=== PATIENT | female | born 1940 | race Caucasian/White ===

== ENCOUNTER 2023-10-10 10:34 | Inpatient (IN) | payer MEDICARE, MEDICAID, SELFPAY ==
[2023-10-10] VITALS (67 sets, daily range): BP systolic 117–194; BP diastolic 41–86; PULSE 71–104; RESP 14–44; TEMP 36.2–36.7; O2SAT 93–100; BMI 34.7; BMI 33.3
--- NOTE | 2023-10-10 | DI.CT.S_ITS ---
PROCEDURE: CT ANKLE LEFT WITHOUT INDICATIONS: FALL - left ankle TECHNIQUE: Noncontrast 1-1.5 mm axial sections acquired from above the tibiotalar joint to the bottom of the calcaneus, with coronal and sagittal reformats. COMPARISON: [facility], CR, XR ANKLE LT MIN 3V, 10/10/2023, 10:52. FINDINGS: Image quality: Excellent. Bones: Trimalleolar fracture with associated posterior dislocation of the talus relative to the distal tibia period the posterior malleolus, medial malleolus, and distal fibular fractures are displaced. There is extensive comminution with numerous tiny bone fragments present. The injury involves the syndesmosis, as the distal fibular fracture begins at the distal shaft. Soft tissues: Ankle joint effusion. IMPRESSION: Extensively comminuted trimalleolar fractures, all displaced, with posterior talar dislocation and involvement of the syndesmosis. Dictated by: Ricco Solomon M.D. on 10/10/2023 at 11:26 Approved by: Ricco Solomon M.D. on 10/10/2023 at 11:29
--- NOTE | 2023-10-10 10:40 | DI.CT.S_ITS ---
PROCEDURE: CT CERVICAL SPINE WO CON INDICATIONS: fall,pt takes eliquis TECHNIQUE: Noncontrast 3 mm thick sections acquired from the skull base to the T4 level. Sagittal and coronal reformats were then constructed. For radiation dose reduction, the following was used: automated exposure control, adjustment of mA and/or kV according to patient size. COMPARISON: None. FINDINGS: Image quality: Suboptimal due to motion artifact. Bones: No fractures or dislocations. Visualized superior ribs are intact. Grade 1 anterolisthesis C3 on C4, likely due to facet arthrosis. Reversal of the normal cervical lordosis. Moderate to severe disc height loss at C6-7, C5-6 and C4-5. Soft tissues: Prevertebral soft tissues are normal in thickness. No paravertebral hematomas. No apical pneumothoraces. IMPRESSION: Severely suboptimal evaluation due to motion artifact. No significantly displaced fracture. Dictated by: Vlad Eckert M.D. on 10/10/2023 at 11:20 Approved by: Vlad Eckert M.D. on 10/10/2023 at 11:22
--- NOTE | 2023-10-10 10:40 | DI.CT.S_ITS ---
PROCEDURE: CT HEAD/BRAIN WO CON INDICATIONS: fall,pt takes eliquis TECHNIQUE: Noncontrast 4.5 mm thick angled axial sections acquired from the foramen magnum to the vertex, with coronal and sagittal reformats. For radiation dose reduction, the following was used: automated exposure control, adjustment of mA and/or kV according to patient size. COMPARISON: None. FINDINGS: Image quality: Diagnostic. CSF spaces: Basal cisterns are patent. No extra-axial fluid collections. The ventricles are symmetric in size and shape. Brain: No intracranial bleeds or masses. There is cerebral volume loss for age, with resultant ventricular and sulcal prominence. There are periventricular and deep white matter chronic small vessel ischemic changes. There is intracranial internal carotid artery atherosclerosis. Skull and face: Calvarium and visualized facial bones appear intact, without suspicious lesions. Hyperostosis frontalis interna. Sinuses: Visualized sinuses and mastoids are clear. IMPRESSION: No acute intracranial pathology. Dictated by: Vlad Eckert M.D. on 10/10/2023 at 11:19 Approved by: Vlad Eckert M.D. on 10/10/2023 at 11:20
--- NOTE | 2023-10-10 10:40 | DI.RAD.S_ITS ---
PROCEDURE: XR ANKLE LT MIN 3V INDICATIONS: fall,pt takes eliquis TECHNIQUE: 3 views of the ankle were acquired. COMPARISON: [facility], CT, CT ANKLE LEFT WITHOUT, 10/10/2023, 11:01. FINDINGS: Bones: Trimalleolus fracture, with tibiotalar dislocation. Soft tissues: Large tibiotalar joint effusion. Achilles tendon appears normal. Swelling about the ankle joint. IMPRESSION: Trimalleolar fracture, with dislocation. Dictated by: Vlad Eckert M.D. on 10/10/2023 at 11:23 Approved by: Vlad Eckert M.D. on 10/10/2023 at 11:24
[2023-10-10] MEDS: MORPHINE 2 MG/ML INJ IV (11:59)
[2023-10-10 12:02] LABS: Add Manual Diff / Slide Review NO; Basophils Absolute Auto 100 /uL (0-100); Basophils Percent Auto 0.5 % (0-2); Eosinophils Absolute Auto 0 /uL (0-450); Eosinophils Percent Auto 0.3 % (2-4); Hematocrit 39.1 % (36-46); Lymphocytes Absolute Auto 1200 /uL (1100-4500); Lymphocytes Percent Auto 10.8 % (25-40); Mean Corpuscular HGB Conc 33.2 % (30-36); Mean Corpuscular Hemoglobin 30.7 PG (26-34); Mean Corpuscular Volume 92.6 fL (80-100); Monocytes Absolute Auto 600 /uL (0-900); Monocytes Percent Auto 5.6 % (3-14); Neutrophils Absolute Auto 9400 /uL (1500-7000); Neutrophils Percent Auto 82.8 % (50-75); Platelet Count 313 X10^3/uL (150-400); Red Blood Cell Count 4.22 X10^6/uL (4.0-5.2); Red Cell Distribution Width 13.9 % (11.6-14.8); White Blood Cell Count 11.3 X10^3/uL (4.5-11.0)
[2023-10-10 12:07] LABS: Alanine Aminotransferase 27 IU/L (<35); Albumin 4.2 g/dL (3.5-5.0); Albumin Globulin Ratio 1.4 (1.0-2.8); Alkaline Phosphatase 72 U/L (38-126); Aspartate Aminotransferase 35 IU/L (14-36); BUN Creatinine Ratio 25.7 (6-22); Bilirubin Total 0.7 mg/dL (0.2-1.3); Blood Urea Nitrogen 18 mg/dL (7-17); Calcium 9.6 mg/dL (8.4-10.2); Carbon Dioxide 24 mmol/L (22-32); Chloride 106 mmol/L (98-107); Estimated Glomerular Filt Rate > 60 mL/min (>60); Glucose 107 mg/dL (80-110); HEMOLYSIS 32 (0-50); Potassium 4.9 mmol/L (3.4-5.1); Sodium 138 mmol/L (137-145); Total Protein 7.2 g/dL (6.3-8.2)
--- NOTE | 2023-10-10 12:46 | ED.FALL ---
HPI - Fall General Chief Complaint: Fall Stated Complaint: l ankle injury Time Seen by Provider: 10/10/23 11:00 Source: patient Mode of arrival: Wheelchair History of Present Illness HPI Narrative: Patient is an 83-year-old female history of paroxysmal atrial fibrillation on Eliquis, congestive heart failure, asthma presenting today with left ankle injury. She reports that she was walking on a curb when her left knee gave out and fell down. She did not head or lose consciousness. She is severe left ankle pain. She has some skin tears on her left elbow. Her friend was able to help her into the car and drove her in POV. She has no chest pain palpitations shortness of breath or other symptoms Related Data Allergies Allergy/AdvReac Type Severity Reaction Status Date / Time Penicillins Allergy Verified 10/10/23 10:36 Patient History Medical History Stage 3b chronic kidney disease (CKD) History of cardioversion Persistent atrial fibrillation Systolic heart failure CAD (coronary artery disease) Emphysema of lung Surgical History No pertinent past surgical history Social History household members: none Smoking Status: Former smoker substance use type: does not use Smoking Status: Unknown if ever smoked alcohol intake frequency: holidays/special occasions only Substance Use Type: does not use Exam Initial Vital Signs Initial Vital Signs: Vital Signs Temperature 97.4 F L 10/10/23 10:36 Pulse Rate 104 H 10/10/23 10:36 Respiratory Rate 16 10/10/23 10:36 Blood Pressure 191/84 H 10/10/23 10:36 Pulse Oximetry 96 10/10/23 10:36 Oxygen Delivery Method Room Air 10/10/23 10:36 GENERAL: Alert very pleasant 83-year-old female HEENT: Head atraumatic,EOMI, pupils reactive, face symmetric, moist mucous membranes NECK: No vertebral tenderness no step-off CARDIOVASCULAR: Regular rate and rhythm without murmurs, rubs or gallops. RESPIRATORY: Breath sounds equal bilaterally, no wheezes rales or rhonchi. EXTREMITIES: Normal range of motion, no clubbing or edema. Neurovascularly intact. No pelvis pain no hip pain Left lower extremity obvious ankle dislocation distal pedal pulse is felt knee is stable NEUROLOGICAL: Alert and oriented x4.Normal gait and speech. SKIN: Significant skin tear left elbow and left knee Procedures Orthopedic Fracture Reduction Fracture #1: Time Out Performed: Yes Side: left Fracture Reduction Location: tibia and fibula Analgesia: procedural sedation Technique: direct manipulation and traction/counter-traction Post Reduction X-rays Demonstrate: acceptable reduction Post-reduction neuro exam: intact Post-reduction vascular exam: intact Splint Applied: Yes Patient Tolerated Procedure: Well and No complications Orthopedic Splinting/Casting Injury #1: Lower Extremity Injury Location: ankle Lower Extremity Immobilizer: posterior splint and stirrup splint Post splinting neuro exam: intact Post splinting vascular exam: intact Placed by: Provider Procedural Sedation Consent signed: Yes Time out performed: Yes Indication: fracture/dislocation reduction ASA Class: II Mallampati Airway Classification: Class II IV Propofol dose (mg): 50 Intraservice time/total sedation time (min): 15 ED Sedation Level: Moderate (Concious) Patient Tolerated Procedure: Well and No complications Complications: none Course Orders Ordered: ED Orders 10/10/23 10:40 CT cervical spine wo con Stat CT head/brain wo con Stat XR ankle LT min 3V Stat 10/10/23 11:57 CBC Auto Diff [Complete Blood Count AUTO DIFF] Stat CMP [Comprehensive Metabolic Panel] Stat 10/10/23 12:05 EKG-12 Lead Stat 10/10/23 13:10 XR ankle LT 2V Stat Acetaminophen (Acetaminophen 325 Mg Tablet) 650 mg PO Q6H PRN PRN Reason: Fever/Mild Pain (1-3) Albuterol (Albuterol 2.5 Mg/3 Ml Neb (Adult)) 2.5 mg INH [id number] PRN PRN Reason: Shortness Of Breath Albuterol (Albuterol 2.5 Mg/3 Ml Neb (Adult)) 2.5 mg INH [id number] ANNELIESE Albuterol/Ipratropium (Albuterol/Ipratropium 3 Ml Ampul) 3 ml INH [id number] ANNELIESE Atorvastatin Calcium (Atorvastatin 20 Mg Tablet) 20 mg PO BEDTIME ANNELIESE Heparin Sodium (Porcine) (Heparin 5,000 Unit/Ml Vial) 5,000 unit SUBCUT BID ANNELIESE Hydromorphone HCl (Hydromorphone 0.5 Mg Inj) 0.5 mg IV Q2H PRN PRN Reason: Pain, Severe (7-10) Metoprolol Succinate (Metoprolol Er 50 Mg Tablet) 100 mg PO DAILY [facility] Montelukast Sodium (Montelukast 10 Mg Tablet) 10 mg PO DAILY ANNELIESE Naloxone HCl (Naloxone 0.4 Mg/Ml Vial) 0.2 mg IV Q2MIN PRN PRN Reason: Opiate Reversal Nystatin (Nystatin Powder 15gm) 1 applic TOP BID PRN PRN Reason: Rash Ondansetron HCl (Ondansetron 4 Mg/2 Ml Inj) 4 mg IV Q8HR PRN PRN Reason: Nausea And Vomiting Oxycodone HCl (Oxycodone Ir 5 Mg Tablet) 5 mg PO Q3H PRN PRN Reason: Pain, Moderate (4-6) Last Admin: 10/10/23 16:20 Dose: 5 mg Documented By: ONIEL Prednisone (Prednisone 5 Mg Tablet) 5 mg PO DAILY ANNELIESE Discontinued Medications Morphine Sulfate (Morphine 2 Mg/Ml Inj) 2 mg IV NOW ONE Stop: 10/10/23 11:44 Last Admin: 10/10/23 11:59 Dose: 2 mg Documented By: Propofol (Propofol 200 Mg/20 Ml Vial) 85 mg 1 mg/kg (85 mg) IV NOW ONE Stop: 10/10/23 12:47 Last Admin: 10/10/23 13:02 Dose: 50 mg Documented By: Vital Signs Vital signs: Vital Signs - 8 hr 10/10/23 11:30 10/10/23 11:35 10/10/23 11:39 Pulse Rate 82 85 Respiratory Rate 32 H 41 H Blood Pressure 132/63 Pulse Oximetry 95 96 Oxygen Delivery Method Oxygen Flow Rate 10/10/23 11:39 10/10/23 11:40 10/10/23 11:45 Pulse Rate 83 87 84 Respiratory Rate 29 H 44 H 31 H Blood Pressure Pulse Oximetry 96 96 97 Oxygen Delivery Method Oxygen Flow Rate 10/10/23 11:50 10/10/23 11:55 10/10/23 12:00 Pulse Rate 81 78 78 Respiratory Rate 20 24 20 Blood Pressure Pulse Oximetry 97 96 96 Oxygen Delivery Method Oxygen Flow Rate 10/10/23 12:05 10/10/23 12:08 10/10/23 12:08 Pulse Rate 81 80 Respiratory Rate 21 30 H Blood Pressure 150/66 H Pulse Oximetry 96 98 Oxygen Delivery Method Oxygen Flow Rate 10/10/23 12:10 10/10/23 12:15 10/10/23 12:20 Pulse Rate 82 80 85 Respiratory Rate 32 H 34 H 35 H Blood Pressure Pulse Oximetry 96 97 98 Oxygen Delivery Method Oxygen Flow Rate 10/10/23 12:25 10/10/23 12:30 10/10/23 12:30 Pulse Rate 79 80 Respiratory Rate 28 H 25 H Blood Pressure 155/67 H Pulse Oximetry 98 98 Oxygen Delivery Method Oxygen Flow Rate 10/10/23 12:35 10/10/23 12:40 10/10/23 12:45 Pulse Rate 74 79 75 Respiratory Rate 22 20 23 Blood Pressure Pulse Oximetry 100 97 97 Oxygen Delivery Method Oxygen Flow Rate 10/10/23 12:50 10/10/23 12:50 10/10/23 12:55 Pulse Rate 75 78 78 Respiratory Rate 21 22 24 Blood Pressure Pulse Oximetry 100 100 Oxygen Delivery Method Oxygen Flow Rate 10/10/23 13:00 10/10/23 13:00 10/10/23 13:01 Pulse Rate 80 Respiratory Rate 30 H Blood Pressure 176/75 H 176/78 H Pulse Oximetry 100 Oxygen Delivery Method Oxygen Flow Rate 10/10/23 13:01 10/10/23 13:05 10/10/23 13:05 Pulse Rate 78 78 Respiratory Rate 27 H 21 Blood Pressure 173/74 H Pulse Oximetry 100 99 Oxygen Delivery Method Oxygen Flow Rate 10/10/23 13:10 10/10/23 13:10 10/10/23 13:15 Pulse Rate 76 Respiratory Rate 20 Blood Pressure 158/72 H 155/69 H Pulse Oximetry 99 Oxygen Delivery Method Oxygen Flow Rate 10/10/23 13:15 10/10/23 13:20 10/10/23 13:20 Pulse Rate 74 74 Respiratory Rate 21 16 Blood Pressure 165/74 H Pulse Oximetry 99 99 Oxygen Delivery Method Oxygen Flow Rate 10/10/23 13:22 10/10/23 13:24 10/10/23 13:25 Pulse Rate 73 74 Respiratory Rate 28 H 17 Blood Pressure 165/74 H 158/72 H Pulse Oximetry 99 100 Oxygen Delivery Method Oxygen Flow Rate 10/10/23 13:25 10/10/23 13:27 10/10/23 13:27 Pulse Rate 74 72 78 Respiratory Rate 18 17 17 Blood Pressure 158/72 H 158/72 H Pulse Oximetry 98 97 98 Oxygen Delivery Method Room Air Oxygen Flow Rate 0 10/10/23 13:30 10/10/23 13:30 10/10/23 13:32 Pulse Rate 71 71 Respiratory Rate 17 20 Blood Pressure 157/70 H 157/70 H Pulse Oximetry 98 98 Oxygen Delivery Method Oxygen Flow Rate 10/10/23 13:32 10/10/23 13:35 10/10/23 13:35 Pulse Rate 72 72 Respiratory Rate 20 18 Blood Pressure 157/70 H 161/71 H Pulse Oximetry 98 97 Oxygen Delivery Method Room Air Oxygen Flow Rate 10/10/23 13:40 10/10/23 13:40 10/10/23 13:45 Pulse Rate 71 71 Respiratory Rate 17 14 Blood Pressure 146/65 H Pulse Oximetry 96 100 Oxygen Delivery Method Oxygen Flow Rate 10/10/23 13:45 10/10/23 13:50 10/10/23 13:50 Pulse Rate 72 Respiratory Rate 17 Blood Pressure 147/67 H 144/66 H Pulse Oximetry 97 Oxygen Delivery Method Oxygen Flow Rate 10/10/23 13:55 10/10/23 13:55 10/10/23 14:00 Pulse Rate 71 Respiratory Rate 15 Blood Pressure 143/66 H 157/72 H Pulse Oximetry 98 Oxygen Delivery Method Oxygen Flow Rate 10/10/23 14:00 10/10/23 14:05 10/10/23 14:05 Pulse Rate 75 71 Respiratory Rate 18 16 Blood Pressure 144/66 H Pulse Oximetry 96 96 Oxygen Delivery Method Oxygen Flow Rate 10/10/23 14:10 10/10/23 14:10 10/10/23 14:15 Pulse Rate 71 72 Respiratory Rate 14 15 Blood Pressure 143/65 H Pulse Oximetry 97 97 Oxygen Delivery Method Oxygen Flow Rate 10/10/23 14:15 10/10/23 14:20 10/10/23 14:20 Pulse Rate 73 Respiratory Rate 14 Blood Pressure 140/65 173/75 H Pulse Oximetry 97 Oxygen Delivery Method Oxygen Flow Rate 10/10/23 14:25 10/10/23 14:25 10/10/23 14:30 Pulse Rate 81 Respiratory Rate 27 H Blood Pressure 194/86 H 180/79 H Pulse Oximetry 97 Oxygen Delivery Method Oxygen Flow Rate 10/10/23 14:30 10/10/23 14:35 10/10/23 14:35 Pulse Rate 80 75 Respiratory Rate 22 20 Blood Pressure 187/77 H Pulse Oximetry 96 98 Oxygen Delivery Method Oxygen Flow Rate 10/10/23 14:40 10/10/23 14:40 10/10/23 14:45 Pulse Rate 73 Respiratory Rate 17 Blood Pressure 168/74 H 159/68 H Pulse Oximetry 98 Oxygen Delivery Method Oxygen Flow Rate 10/10/23 14:45 Pulse Rate 75 Respiratory Rate 16 Blood Pressure Pulse Oximetry 96 Oxygen Delivery Method Oxygen Flow Rate MDM - Fall Lab Data 10/10/23 11:57 10/10/23 11:57 Labs: Lab Results 10/10/23 Range/Units 11:57 WBC 11.3 H (4.5-11.0) X10^3/uL RBC 4.22 (4.0-5.2) X10^6/uL Hgb 13.0 (12.0-16.0) g/dL Hct 39.1 (36-46) % MCV 92.6 (80-100) fL MCH 30.7 (26-34) PG MCHC 33.2 (30-36) % RDW 13.9 (11.6-14.8) % Plt Count 313 (150-400) X10^3/uL Neut % (Auto) 82.8 H (50-75) % Lymph % (Auto) 10.8 L (25-40) % [place] % (Auto) 5.6 (3-14) % Eos % (Auto) 0.3 L (2-4) % Baso % (Auto) 0.5 (0-2) % Neut # (Auto) 9400 H (5893-3401) /uL Lymph # (Auto) 1200 (6285-0387) /uL [place] # (Auto) 600 (0-900) /uL Eos # (Auto) 0 (0-450) /uL Baso # (Auto) 100 (0-100) /uL Sodium 138 (137-145) mmol/L Potassium 4.9 (3.4-5.1) mmol/L Chloride 106 (98-107) mmol/L Carbon Dioxide 24 (22-32) mmol/L BUN 18 H (7-17) mg/dL Creatinine 0.70 (0.52-1.04) mg/dL Estimated GFR > 60 (>60) mL/min BUN/Creatinine Ratio 25.7 H (6-22) Glucose 107 (80-110) mg/dL Calcium 9.6 (8.4-10.2) mg/dL Total Bilirubin 0.7 (0.2-1.3) mg/dL AST 35 (14-36) IU/L ALT 27 (<35) IU/L Alkaline Phosphatase 72 (38-126) U/L Total Protein 7.2 (6.3-8.2) g/dL Albumin 4.2 (3.5-5.0) g/dL Globulin 3.0 (1.7-4.1) g/dL Albumin/Globulin Ratio 1.4 (1.0-2.8) Point of Care Testing Test Results Not applicable ECG Data Interpretation: Sinus rhythm left bundle-branch block noted no acute changes no priors to compare MDM Narrative Medical decision making narrative: Patient 83-year-old female history of atrial fibrillation CHF 1 Eliquis presenting today with ground level fall and left ankle deformity. X-ray confirms ankle fracture dislocation. She tolerated procedure sedation well easily reduced. Patient lives on [address] [facility] alone she has no family children or support accepts for her neighbor. She reports that she is a DNR. Imaging reviewed: X-ray shows fracture dislocation, with improvement post reduction, CT ankle shows extensively comminuted trimalleolar fractures all displaced with posterior talar dislocation, CT cervical spine no fracture head CT no intracranial pathology [facility] updated patient's symptoms understands that it might be a social issue he agrees to do surgery in [address] Teague updated on patient's symptoms test results and accepts Discharge Plan Departure Patient Disposition: Admitted As Inpatient Clinical Impression: Closed fracture dislocation of right ankle, Closed right trimalleolar fracture Admit Date/Time: 10/10/23 14:49 Admit Provider: Duran Teague
[2023-10-10] MEDS: propofoL 200 MG/20 ML VIAL 85 MG IV (13:02)
--- NOTE | 2023-10-10 13:10 | DI.RAD.S_ITS ---
PROCEDURE: XR ANKLE LT 2V INDICATIONS: post reduction TECHNIQUE: 3 views of the ankle were acquired. COMPARISON: [facility], CR, XR ANKLE LT MIN 3V, 10/10/2023, 10:52. FINDINGS: Bones: Casted views is somewhat obscure bony detail. Significant interval improvement in alignment, with trimalleolar fractures and Re approximation of the ankle mortise. Soft tissues: No tibiotalar joint effusion. Achilles tendon appears normal. IMPRESSION: Significant improvement in alignment, trimalleolar fractures. There is no longer a tibiotalar dislocation. Dictated by: Ricco Solomon M.D. on 10/10/2023 at 13:47 Approved by: Ricco Solomon M.D. on 10/10/2023 at 13:48
--- NOTE | 2023-10-10 14:12 | RT ---
At bedside for PRS,bag mask unit with suction at bedside functional and on. Pt placed on etco2 and 2 lpm nc. Sao2 99%, pt moo well with no distress noted. Released by LOUIS Harrell, all rales up and pt alert on room air.
--- NOTE | 2023-10-10 14:32 | PC.NURSE ---
purewick placed; pt education given
--- NOTE | 2023-10-10 15:05 | PC.NURSE ---
Pt's silver bracelet placed into a lab bag that was labeled with a pt sticker. Labeled lab bag was placed into the pt's pt belonging bag.
[2023-10-10] MEDS: OXYCODONE IR 5 MG TABLET PO ×2 (16:20→20:04)
--- NOTE | 2023-10-10 16:47 | P.HP_ITS ---
History of Present Illness History of Present Illness Date Patient Seen: 10/10/23 Time Patient Seen: 16:53 Chief complaint: l ankle injury Narrative: This is an 83 year old female with PMH of emphysema, persistent afib, systolic HF (most recent EF around 55% on TTE 2022), CKD stage III who presented to the emergency room with L ankle pain after a fall. She fell getting up onto a curb, where she had severe knee pain which made her legs give out and she fell backward. She did not hit her head or lose consciousness. She takes eqliuis for her persistent afib. Prior to this, since her admission for pneumonia last year she has continued to feel weak, short of breath, and over the last couple of months this has maybe been a bit worse. Her legs are a bit more swollen, but she primarily has increased fatigue and decreased activity tolerance. Her pain is currently okay, only really bothers her without movement. She has had worsening right groin pain, which is worse with lifting, that has also been limiting her mobility recently due to recurring pain. She has rested and did exercises her PCP recommended at home but they have not been helping. It really started she thinks after pushing a heavy plant at her home. Home medications: from patient's phone: advair 230-21, albuterol and duo-neb nebulizers eliquis 2.5 mg BID prednisone 5 mg daily lasix 20 mg prn (has not taken >1 year) lipitor 20 mg losartan 25 mg daily metoprolol succ 100 mg daily montelukast 10 mg daily [facility] Medical History Stage 3b chronic kidney disease (CKD) History of cardioversion Persistent atrial fibrillation Systolic heart failure CAD (coronary artery disease) Emphysema of lung Surgical History No pertinent past surgical history Social History household members: none Smoking Status: Former smoker substance use type: does not use Meds Home Medications and Allergies Allergies Allergy/AdvReac Type Severity Reaction Status Date / Time Penicillins Allergy Verified 10/10/23 10:36 Review of Systems Review of Systems Narrative: All other systems reviewed with the patient and are negative unless otherwise stated. Exam Vital Signs (past 8 hours): - 10/10/23 10:36 10/10/23 11:17 10/10/23 11:20 Temperature 97.4 F L Pulse Rate 104 H 90 81 Pulse Rate [Left Dorsalis Pedis] Respiratory Rate 16 37 H 26 H Blood Pressure 191/84 H Pulse Oximetry 96 96 Oxygen Delivery Method Room Air Oxygen Flow Rate 10/10/23 11:25 10/10/23 11:30 10/10/23 11:35 Temperature Pulse Rate 90 82 85 Pulse Rate [Left Dorsalis Pedis] Respiratory Rate 34 H 32 H 41 H Blood Pressure Pulse Oximetry 95 95 96 Oxygen Delivery Method Oxygen Flow Rate 10/10/23 11:39 10/10/23 11:39 10/10/23 11:40 Temperature Pulse Rate 83 87 Pulse Rate [Left Dorsalis Pedis] Respiratory Rate 29 H 44 H Blood Pressure 132/63 Pulse Oximetry 96 96 Oxygen Delivery Method Oxygen Flow Rate 10/10/23 11:45 10/10/23 11:50 10/10/23 11:55 Temperature Pulse Rate 84 81 78 Pulse Rate [Left Dorsalis Pedis] Respiratory Rate 31 H 20 24 Blood Pressure Pulse Oximetry 97 97 96 Oxygen Delivery Method Oxygen Flow Rate 10/10/23 12:00 10/10/23 12:05 10/10/23 12:08 Temperature Pulse Rate 78 81 Pulse Rate [Left Dorsalis Pedis] Respiratory Rate 20 21 Blood Pressure 150/66 H Pulse Oximetry 96 96 Oxygen Delivery Method Oxygen Flow Rate 10/10/23 12:08 10/10/23 12:10 10/10/23 12:15 Temperature Pulse Rate 80 82 80 Pulse Rate [Left Dorsalis Pedis] Respiratory Rate 30 H 32 H 34 H Blood Pressure Pulse Oximetry 98 96 97 Oxygen Delivery Method Oxygen Flow Rate 10/10/23 12:20 10/10/23 12:25 10/10/23 12:30 Temperature Pulse Rate 85 79 Pulse Rate [Left Dorsalis Pedis] Respiratory Rate 35 H 28 H Blood Pressure 155/67 H Pulse Oximetry 98 98 Oxygen Delivery Method Oxygen Flow Rate 10/10/23 12:30 10/10/23 12:35 10/10/23 12:40 Temperature Pulse Rate 80 74 79 Pulse Rate [Left Dorsalis Pedis] Respiratory Rate 25 H 22 20 Blood Pressure Pulse Oximetry 98 100 97 Oxygen Delivery Method Oxygen Flow Rate 10/10/23 12:45 10/10/23 12:50 10/10/23 12:50 Temperature Pulse Rate 75 75 78 Pulse Rate [Left Dorsalis Pedis] Respiratory Rate 23 21 22 Blood Pressure Pulse Oximetry 97 100 Oxygen Delivery Method Oxygen Flow Rate 10/10/23 12:55 10/10/23 13:00 10/10/23 13:00 Temperature Pulse Rate 78 80 Pulse Rate [Left Dorsalis Pedis] Respiratory Rate 24 30 H Blood Pressure 176/75 H Pulse Oximetry 100 100 Oxygen Delivery Method Oxygen Flow Rate 10/10/23 13:01 10/10/23 13:01 10/10/23 13:05 Temperature Pulse Rate 78 Pulse Rate [Left Dorsalis Pedis] Respiratory Rate 27 H Blood Pressure 176/78 H 173/74 H Pulse Oximetry 100 Oxygen Delivery Method Oxygen Flow Rate 10/10/23 13:05 10/10/23 13:10 10/10/23 13:10 Temperature Pulse Rate 78 76 Pulse Rate [Left Dorsalis Pedis] Respiratory Rate 21 20 Blood Pressure 158/72 H Pulse Oximetry 99 99 Oxygen Delivery Method Oxygen Flow Rate 10/10/23 13:15 10/10/23 13:15 10/10/23 13:20 Temperature Pulse Rate 74 Pulse Rate [Left Dorsalis Pedis] Respiratory Rate 21 Blood Pressure 155/69 H 165/74 H Pulse Oximetry 99 Oxygen Delivery Method Oxygen Flow Rate 10/10/23 13:20 10/10/23 13:22 10/10/23 13:24 Temperature Pulse Rate 74 73 74 Pulse Rate [Left Dorsalis Pedis] Respiratory Rate 16 28 H 17 Blood Pressure 165/74 H Pulse Oximetry 99 99 100 Oxygen Delivery Method Oxygen Flow Rate 10/10/23 13:25 10/10/23 13:25 10/10/23 13:27 Temperature Pulse Rate 74 72 Pulse Rate [Left Dorsalis Pedis] Respiratory Rate 18 17 Blood Pressure 158/72 H 158/72 H Pulse Oximetry 98 97 Oxygen Delivery Method Oxygen Flow Rate 0 10/10/23 13:27 10/10/23 13:30 10/10/23 13:30 Temperature Pulse Rate 78 71 Pulse Rate [Left Dorsalis Pedis] Respiratory Rate 17 17 Blood Pressure 158/72 H 157/70 H Pulse Oximetry 98 98 Oxygen Delivery Method Room Air Oxygen Flow Rate 10/10/23 13:32 10/10/23 13:32 10/10/23 13:35 Temperature Pulse Rate 71 72 Pulse Rate [Left Dorsalis Pedis] Respiratory Rate 20 20 Blood Pressure 157/70 H 157/70 H 161/71 H Pulse Oximetry 98 98 Oxygen Delivery Method Room Air Oxygen Flow Rate 10/10/23 13:35 10/10/23 13:40 10/10/23 13:40 Temperature Pulse Rate 72 71 Pulse Rate [Left Dorsalis Pedis] Respiratory Rate 18 17 Blood Pressure 146/65 H Pulse Oximetry 97 96 Oxygen Delivery Method Oxygen Flow Rate 10/10/23 13:45 10/10/23 13:45 10/10/23 13:50 Temperature Pulse Rate 71 72 Pulse Rate [Left Dorsalis Pedis] Respiratory Rate 14 17 Blood Pressure 147/67 H Pulse Oximetry 100 97 Oxygen Delivery Method Oxygen Flow Rate 10/10/23 13:50 10/10/23 13:55 10/10/23 13:55 Temperature Pulse Rate 71 Pulse Rate [Left Dorsalis Pedis] Respiratory Rate 15 Blood Pressure 144/66 H 143/66 H Pulse Oximetry 98 Oxygen Delivery Method Oxygen Flow Rate 10/10/23 14:00 10/10/23 14:00 10/10/23 14:05 Temperature Pulse Rate 75 Pulse Rate [Left Dorsalis Pedis] Respiratory Rate 18 Blood Pressure 157/72 H 144/66 H Pulse Oximetry 96 Oxygen Delivery Method Oxygen Flow Rate 10/10/23 14:05 10/10/23 14:10 10/10/23 14:10 Temperature Pulse Rate 71 71 Pulse Rate [Left Dorsalis Pedis] Respiratory Rate 16 14 Blood Pressure 143/65 H Pulse Oximetry 96 97 Oxygen Delivery Method Oxygen Flow Rate 10/10/23 14:15 10/10/23 14:15 10/10/23 14:20 Temperature Pulse Rate 72 Pulse Rate [Left Dorsalis Pedis] Respiratory Rate 15 Blood Pressure 140/65 173/75 H Pulse Oximetry 97 Oxygen Delivery Method Oxygen Flow Rate 10/10/23 14:20 10/10/23 14:25 10/10/23 14:25 Temperature Pulse Rate 73 81 Pulse Rate [Left Dorsalis Pedis] Respiratory Rate 14 27 H Blood Pressure 194/86 H Pulse Oximetry 97 97 Oxygen Delivery Method Oxygen Flow Rate 10/10/23 14:30 10/10/23 14:30 10/10/23 14:35 Temperature Pulse Rate 80 Pulse Rate [Left Dorsalis Pedis] Respiratory Rate 22 Blood Pressure 180/79 H 187/77 H Pulse Oximetry 96 Oxygen Delivery Method Oxygen Flow Rate 10/10/23 14:35 10/10/23 14:40 10/10/23 14:40 Temperature Pulse Rate 75 73 Pulse Rate [Left Dorsalis Pedis] Respiratory Rate 20 17 Blood Pressure 168/74 H Pulse Oximetry 98 98 Oxygen Delivery Method Oxygen Flow Rate 10/10/23 14:45 10/10/23 14:45 10/10/23 14:50 Temperature Pulse Rate 75 79 Pulse Rate [Left Dorsalis Pedis] Respiratory Rate 16 23 Blood Pressure 159/68 H Pulse Oximetry 96 100 Oxygen Delivery Method Oxygen Flow Rate 10/10/23 14:50 10/10/23 14:55 10/10/23 15:00 Temperature Pulse Rate 80 Pulse Rate [Left Dorsalis Pedis] Respiratory Rate 18 Blood Pressure 173/78 H 172/70 H Pulse Oximetry 97 Oxygen Delivery Method Oxygen Flow Rate 10/10/23 15:00 10/10/23 15:00 10/10/23 15:05 Temperature Pulse Rate 78 79 Pulse Rate [Left Dorsalis Pedis] 78 Respiratory Rate 20 19 Blood Pressure Pulse Oximetry 97 98 Oxygen Delivery Method Oxygen Flow Rate 10/10/23 15:10 10/10/23 15:15 10/10/23 15:20 Temperature Pulse Rate 76 80 78 Pulse Rate [Left Dorsalis Pedis] Respiratory Rate 26 H 14 Blood Pressure Pulse Oximetry 98 99 97 Oxygen Delivery Method Oxygen Flow Rate 10/10/23 15:25 10/10/23 15:30 10/10/23 15:31 Temperature Pulse Rate 79 77 Pulse Rate [Left Dorsalis Pedis] Respiratory Rate 19 27 H Blood Pressure 139/63 Pulse Oximetry 98 96 Oxygen Delivery Method Oxygen Flow Rate 10/10/23 15:31 10/10/23 16:00 10/10/23 16:00 Temperature Pulse Rate 79 88 Pulse Rate [Left Dorsalis Pedis] Respiratory Rate 25 H 18 Blood Pressure 143/65 H Pulse Oximetry 97 96 Oxygen Delivery Method Oxygen Flow Rate 10/10/23 16:30 10/10/23 16:31 10/10/23 16:31 Temperature Pulse Rate 77 79 Pulse Rate [Left Dorsalis Pedis] Respiratory Rate 24 19 Blood Pressure 128/60 Pulse Oximetry 97 97 Oxygen Delivery Method Oxygen Flow Rate Oxygen Delivery Method Room Air Oxygen Flow Rate 0 Narrative Exam Narrative: General:? Patient is well developed and well nourished, in no distress at this time. HEENT:? Normocephalic, atraumatic, extraocular muscles intact, oral pharynx is clear and mucous membranes are moist. Neck: supple and symmetric, trachea is midline, no cervical adenopathy. Negative for JVD Chest:? Normal AP diameter and contour without kyphoscoliosis, no tachypnea, equal chest rise bilaterally. Lungs:? CTA b/l no wheezing rhonchi or rales. Cardio:?irregularly irregular rhythm with normal rate. Abdomen: S NT ND. : possible R reducible hernia vs lymph node, tender R groin, mild erythema in L groin folds. Musculoskeletal:? Muscle strength and tone are equal within normal limits. Bilateral arched feet with hammer toe. Extremities: No joint effusions. No cyanosis or clubbing. Trace bilateral lower extremity edema though L ankle and calf are wrapped. Skin:? Pale,? Warm to touch,dry and intact without rashes, ulcerations or petechiae.? Neuro:? Alert and orientated x3, Psych:? Patient has a well-kept appearance, appropriate affect, mental status attitude thought context and judgment are appropriate for age. Objective Labs 10/10/23 11:57 10/10/23 11:57 Labs: Laboratory Results - last 24 hr 10/10/23 11:57 WBC 11.3 H RBC 4.22 Hgb 13.0 Hct 39.1 MCV 92.6 MCH 30.7 MCHC 33.2 RDW 13.9 Plt Count 313 Neut % (Auto) 82.8 H Lymph % (Auto) 10.8 L Coles % (Auto) 5.6 Eos % (Auto) 0.3 L Baso % (Auto) 0.5 Neut # (Auto) 9400 H Lymph # (Auto) 1200 Coles # (Auto) 600 Eos # (Auto) 0 Baso # (Auto) 100 Sodium 138 Potassium 4.9 Chloride 106 Carbon Dioxide 24 BUN 18 H Creatinine 0.70 Estimated GFR > 60 BUN/Creatinine Ratio 25.7 H Glucose 107 Calcium 9.6 Total Bilirubin 0.7 AST 35 ALT 27 Alkaline Phosphatase 72 Total Protein 7.2 Albumin 4.2 Globulin 3.0 Albumin/Globulin Ratio 1.4 Assessment & Plan Assessment & Plan narrative: 1. L trimalleolar ankle fracture - management per orthopedic surgery, current plan for OR on 10/12 after eliquis has been held - will evaluate recent fatigue and shortness of breath with repeat echo. - pain control with as needed medications. - NWB for now LLE - with 5 mg prednisone should not require stress dose steroids, though monitor cautiously post operatively. 2. R groin pain - does have a either a palpable lymph node or possible R inguinal hernia, difficult to tell with obesity - CT ordered now, given possibly contributed to limited mobility, and with vague fatigue symptoms if there is an enlarged lymph node may expand differential. 3. Chronic systolic heart failure - no obvious signs of acute failure, but with presenting vague symptoms will recheck an echo. Last EF 55%. - continue home diuretic prn, will not give for now pending TTE. 4. CKD stage III - creatinine appears to be at usual baseline, 0.7 today. 5. Persistent afib on chronic anticoagulation - continue home beta sneha metoprolol succ 100 mg daily - hold apixaban for now prior to surgery. With improvement in creatinine she can increase to 5 mg BID after surgery. 6. Chronic empysema - RT evaluation ordered - continue duo-nebs and standing albuterol with prn albuterol nebs to replace home advair. - bicarb is normal, not likely a chronic CO2 retainer. - no signs of current exacerbation - continue chronic 5 mg prednisone daily. 7. HTN - hold home losartan day of surgery - continue home metoprolol, losartan and prn lasix as noted above. Code: DNR, she declines surrogate decision maker despite discussion at this time. Dispo: Admitted inpatient, possible home vs SNF depending on therapy evaluations after surgery I have utilized all available immediate resources to obtain, update, or review the patient's current medications. DVT: HSQ for now, hold morning of OR. Discussed with ER provider whom helped to contribute to above history, assessment and plan.
--- NOTE | 2023-10-10 18:24 | DI.CT.S_ITS ---
PROCEDURE: CT ABDOMEN PELVIS WO CON INDICATIONS: R groin pain, ? abdominal source vs hernia, obese TECHNIQUE: Axial sections were acquired from the lung bases to the pubic symphysis. Coronal and sagittal reformats were performed. For radiation dose reduction, the following was used: automated exposure control, adjustment of mA and/or kV according to patient size. COMPARISON: None. FINDINGS: Image quality: Diagnostic. Lower Chest: Bibasilar atelectasis. Heart size is normal. Small pericardial effusion. URINARY: Right Kidney: No stones or hydronephrosis. Right Ureter: No hydroureter. Left Kidney: No stones or hydronephrosis. Calcifications in the renal hilum are likely vascular in nature. Left Ureter: No hydroureter. Bladder: Normal wall thickness. No stones. ABDOMEN: Liver: No contour-deforming solid mass. Gallbladder: There are gallstones. Biliary ducts: No biliary dilation. Pancreas: No ductal dilation. Spleen: Size is within normal limits. Adrenal Glands: No adrenal nodules. Stomach and Bowel: Normal colonic caliber, without significant wall thickening. Mild diverticulosis without diverticulitis. There is a large amount of stool in colon. Normal appendix Peritoneum: No abnormal intraperitoneal fluid. No free air. Ventral Wall: No hernia. Abdominal Nodes: No enlarged retroperitoneal or mesenteric lymph nodes. Vessels: Aorta and inferior vena cava are normal in size. Severe atherosclerosis. PELVIS: Pelvic Organs: There are numerous calcified uterine fibroids. Ovaries are not well seen. Pelvic Nodes: Unremarkable. Miscellaneous: No inguinal hernias are seen. Bones: Moderate spondylitic changes in lumbar spine. IMPRESSION: 1. No obstructing stones or hydronephrosis. 2. Cholelithiasis. 3. No inguinal hernias. 4. Numerous calcified uterine fibroids. 5. Diverticulosis without diverticulitis. 6. A large amount of stool in colon. 7. Small pericardial effusion. Dictated by: Alba Aly M.D. on 10/11/2023 at 1:08 Approved by: Alba Aly M.D. on 10/11/2023 at 1:15
[2023-10-10] MEDS: HEPARIN 5,000 UNIT/ML VIAL 5000 UNIT SUBCUT (20:03)
[2023-10-10] MEDS: ATORVASTATIN 20 MG TABLET PO (20:03)
[2023-10-10] MEDS: ACETAMINOPHEN 325 MG TABLET 650 MG PO (20:04)
[2023-10-11] VITALS (13 sets, daily range): BP systolic 104–145; BP diastolic 44–88; PULSE 71–85; RESP 15–18; TEMP 36–37.6; O2SAT 92–99
[2023-10-11] MEDS: OXYCODONE IR 5 MG TABLET PO ×3 (00:10→18:33)
[2023-10-11 04:51] LABS: Add Manual Diff / Slide Review NO; Basophils Absolute Auto 0 /uL (0-100); Basophils Percent Auto 0.5 % (0-2); Eosinophils Absolute Auto 200 /uL (0-450); Eosinophils Percent Auto 1.7 % (2-4); Hematocrit 34.1 % (36-46); Hemoglobin 11.5 g/dL (12.0-16.0); Lymphocytes Absolute Auto 2500 /uL (1100-4500); Lymphocytes Percent Auto 26.5 % (25-40); Mean Corpuscular HGB Conc 33.7 % (30-36); Mean Corpuscular Hemoglobin 31.2 PG (26-34); Mean Corpuscular Volume 92.5 fL (80-100); Monocytes Absolute Auto 1000 /uL (0-900); Monocytes Percent Auto 10.6 % (3-14); Neutrophils Absolute Auto 5700 /uL (1500-7000); Neutrophils Percent Auto 60.7 % (50-75); Platelet Count 267 X10^3/uL (150-400); Red Blood Cell Count 3.69 X10^6/uL (4.0-5.2); Red Cell Distribution Width 13.9 % (11.6-14.8); White Blood Cell Count 9.3 X10^3/uL (4.5-11.0)
[2023-10-11 05:04] LABS: BUN Creatinine Ratio 23.5 (6-22); Blood Urea Nitrogen 19 mg/dL (7-17); Calcium 8.9 mg/dL (8.4-10.2); Carbon Dioxide 27 mmol/L (22-32); Chloride 105 mmol/L (98-107); Estimated Glomerular Filt Rate > 60 mL/min (>60); Glucose 90 mg/dL (80-110); HEMOLYSIS < 15 (0-50); Magnesium 2.1 mg/dL (1.6-2.3); Sodium 136 mmol/L (137-145)
[2023-10-11 05:11] LABS: NT-proBNP (BNP-Adult 18+) 1280 pg/mL (<450)
--- NOTE | 2023-10-11 06:24 | DI.ECHO.S_ITS ---
Version: 1 Study ID: [id number] [place] [address] Name: RAYNE BARROSO Study Date: 10/11/2023, 6: 24 AM : 1940 BP: 113 / 46 mmHg Gender: Female Height: 62 in Age: 83 Years Weight: 181 lb BSA: 1.83 m?? Ordering: ANNALEE SIMPSON Referring: ANNALEE SIMPSON Clinician: Eri Breaux Reason For Study: DYSPNEA ON EXERTION History: Summary Statements Normal sinus rhythm with wide QRS complexes. Normal LV size and mildly increased wall thickness. Normal wall motion other than septal hypokinesis which is most likely due to conduction system disease. Normal LV systolic function. Ejection fraction 60-65%. Moderate mitral annular calcification. Aortic sclerosis without stenosis. Normal chamber sizes No prior study available for comparison. Procedure: A two-dimensional transthoracic echocardiogram with color flow and Doppler was performed. The study quality was technically adequate. There is no prior echocardiogram noted for this patient. A contrast injection of Definity was performed to improve assessment of LV function. The heart rate ranged between 72-82 bpm during the study. Left Ventricle: The ejection fraction is estimated to be 60-65%. There is mild concentric left ventricular hypertrophy. The left ventricle is grossly normal size. Septal motion is consistent with conduction abnormality. Right Ventricle: The right ventricle is normal in size and function. Atria: There is no Doppler evidence for an interatrial shunt. The left atrial size is normal. Right atrial size is normal. Mitral Valve: There is no mitral regurgitation noted. The mitral valve leaflets appear mildly thickened, but open well. There is mild to moderate mitral annular calcification. Aortic Valve: There is no aortic valve stenosis. The aortic valve is not well visualized. Tricuspid Valve: There is mild tricuspid regurgitation. The tricuspid valve is normal in structure and function. Pulmonic Valve: There is no pulmonic valvular regurgitation. The pulmonic valve is not well visualized. Great Vessels: The ascending aorta could not be visualized. The aortic root is normal size. The IVC is of normal diameter and collapses greater than 50% with a sniff. This suggests a low right atrial pressure of 3 mm Hg. Pericardium/ Pleura: There is no pericardial effusion. There is an anterior echo-free space consistent with a fat pad. There is no pleural effusion. 2D and M-Mode Measurements and Calculations LVIDd: 3.7 cm LVOT diam: 1.84 cm LVIDs: 2.37 cm Ao root diam: 2.7 cm IVSd: 1.10 cm LVPWd: 1.06 cm LV dhillon. diameter/BSA (cm/m^2): 2.04 LV sys. diameter/BSA (cm/m^2): 1.29 RVD1 (basal): 3.8 cm TAPSE: 1.92 cm LA A4 area: 17.5 cm?? IVC diam: 1.46 cm LA A2 area: 20.4 cm?? RA area: 12.4 cm?? LA length (vol): 5.4 cm RA long axis: 4.1 cm LA vol: 55.8 ml RA vol: 32.4 ml LA vol index: 30.5 ml/m?? RA : 17.7 ml/m?? Doppler Measurements and Calculations Ao V2 max: 169.8 cm/sec LVOT Max Geo: 101.7 cm/sec Ao V2 mean: 116.0 cm/sec LV V1 max P.1 mmHg Ao V2 VTI: 32.7 cm LV V1 VTI: 20.3 cm Ao max P.5 mmHg SV(LVOT): 54.1 ml Ao mean P.0 mmHg GUANAKO(I,D): 1.66 cm?? GUANAKO(V,D): 1.60 cm?? GUANAKO indexed to BSA (cm^2/m^2): 0.90 sev ratio: 0.62 MV E max geo: 81.1 cm/sec MV dec time: 0.29 sec MV A max geo: 109.4 cm/sec MV E/A: 0.74 Med Peak E' Geo: 5.9 cm/sec Lat Peak E' Geo: 5.0 cm/sec E/e' average: 14.9 TR max geo: 218.4 cm/sec PA mean P.15 mmHg TR max P.1 mmHg PA V2 max: 95.3 cm/sec Electronically signed by: Melvina Lovelace M.D. 10/11/2023, 2: 01 PM
[2023-10-11] MEDS: METOPROLOL ER 50 MG TABLET 100 MG PO (08:44)
[2023-10-11] MEDS: predniSONE 5 MG TABLET PO (08:44)
[2023-10-11] MEDS: MONTELUKAST 10 MG TABLET PO (08:44)
[2023-10-11] MEDS: HEPARIN 5,000 UNIT/ML VIAL 5000 UNIT SUBCUT (08:46)
--- NOTE | 2023-10-11 10:48 | CM.DANOTE ---
Addendum entered by CHACHO Jiang 10/11/23 15:33: ADD: Per [facility] admission, they can likely accept pt pending staffing for admit on day of discharge as they have been short on staffing branch manager and cannot accept over the weekend. BF Addendum entered by CHACHO Jiang 10/11/23 12:51: ADD: ANSLEY spoke to Vianca at [facility] and they can accept pt pending how she does with PT/OT post surg and will just need to send updated clinicals to review this weekend. [facility] aware pt preference is [facility] due to location but [facility]. BF Original Note: Patient is an 83 yo female who was admitted on 10/10/23 for Ankle Injury. Pt has MCR and SUSAN for insurance and her PCP is Shawn Da Silva at [facility]. EMR was reviewed. Per MD, pt with hx of emphysema, AFIB, EF of 55% and has had increasing fatigue and SOB and admitted after GLF with ankle fx and dislocation. ANSLEY spoke to Surgeon Dr. Rossi and per Surgeon, plan is hold Eliquis and then surgery Sat AM (tomorrow) and then PT/OT to be ordered to determine mobility needs but pt will be NWB status and he discussed bedside with pt the likelihood of SNF since she lives alone and pt acknowledges understanding but confirms her preference is home with HH if possible. ANSLEY met bedside with pt and explained role and she confirms she lives on [address] alone in a house that is kind of off grid, meaning it is run by a battery pack that has to be charged each night. Pt has 2 cats at home and typically does not use DME for most mobility but has 4WW, FWW, and w/c at home for use if needed. Pt no longer drives and relies on her neighbor Tristan for transportation and assist as needed. Tristan works but provides assistance to pt as needed and was the one who had transported pt off [facility] to [place] for her eye appointment when pt's knee gave out and she fell breaking/dislocating her ankle. Pt denies any living relatives/family that she knows of still alive and denies any children of her own and has not set up DPOA. ANSLEY provided DPOA pwk and strongly encouraged her to considering completing and she is struggling with identifying anyone besides her neighbor support Tristan as pt states I've been a recluse for 30 yrs and don't have any friends or family. Pt confirms though that she has completed her POLST at PCP office and has it on her satdg and is DNR and has made the decision to donate her body to science. SW still encouraged her to do DPOA pwk as she has made most of the difficult decisions on POLST that DPOA could follow. Pt agreeable to look at the pwk and consider. SW discussed HH vs SNF and provided the SNF Choice list. Pt states she has no hx of SNF but has used [facility] twice and found them helpful but it was mostly for care consultant. Pt would prefer home with [facility] and discussed possible PP CG if needed but pt states she is on Welfare and cannot afford to privately pay for caregivers or pay for Respite Stay at [facility] on Saturday. Pt detemined if SNF needed preference would be [facility] due to location but aware they might not have bed availability if SNF needed and agreeable to SNF referrals. ROBERT Vera kindly made initial SNF referral to [facility] updating them that pt still to have surgery tomorrow and then PT/OT evals. PASRR completed. Plan: SW to follow closely after ankle surgery tomorrow Sat morning with Ortho and then PT/OT to determine HH vs SNF at d/c. CHACHO Jiang Discharge Planning/Care Management CM Discharge Assessment Start: 10/11/23 10:44 Freq: Status: Active Protocol: Document 10/11/23 10:45 BF (Rec: 10/11/23 10:47 BF [id number]) Discharge Planning Assessment Assigned Apartment House Manager CHACHO Davila DPOA/Assigned Designee Name none, gave pwk Advance Directives? No Advance Directives on File Yes History Provided By Patient,Medical Record Has Patient been admitted in last 30 No days? Prior Living Arrangements House Household Members none Type of transporation used prior to Relies on Others admit Comment neighbor Tristan [place] Independent with ADL's Yes Is patient alert and oriented? Yes Caregiver for Another No Comment Has hx of using [facility] before DME Already Rented / Owned Wheelchair,FWW / Walker Comment Pending PT/OT eval post surg this weekend Barriers to Discharge Yes Comment Pt lives alone on [address] and somewhat off the grid Discharge Plan Home with Home Health Transportation Arrangement neighbor Tristan would transport home if safe plan to home determined Additional Comment Pending PT/OT post surg Whiteboard Updated in Patient Room with Yes name and ext. # of Apartment House Manager Review Status In Process Please Provide Date Initial DC 10/11/23 Assessment Was Performed Next Review Type Continued Stay Review
--- NOTE | 2023-10-11 12:14 | PM.PN.1 ---
Subjective Subjective Interval history: 83 F admitted with a L ankle fracture, surgery planned for tomorrow. She has continued pain this morning, denies complaints otherwise. No chest pain or shortness of breath. Exam Vital Signs (past 8 hours): - 10/11/23 05:00 10/11/23 07:57 10/11/23 09:00 Temperature 97.2 F L Pulse Rate 84 Respiratory Rate 18 Blood Pressure 104/44 L Pulse Oximetry 98 95 95 Oxygen Delivery Method Room Air Room Air Oxygen Flow Rate 0 Oxygen Delivery Method Room Air Oxygen Flow Rate 0 Narrative Exam Narrative: General:? Patient is well developed and well nourished, in no distress at this time. HEENT:? Normocephalic, atraumatic, extraocular muscles intact, oral pharynx is clear and mucous membranes are moist. Neck: supple and symmetric, trachea is midline, no cervical adenopathy. Negative for JVD Chest:? Normal AP diameter and contour without kyphoscoliosis, no tachypnea, equal chest rise bilaterally. Lungs:? CTA b/l no wheezing rhonchi or rales. Cardio:?irregularly irregular rhythm with normal rate. Abdomen: S NT ND. : possible R reducible hernia vs lymph node, tender R groin, mild erythema in L groin folds. Musculoskeletal:? Muscle strength and tone are equal within normal limits. Bilateral arched feet with hammer toe. Extremities: No joint effusions. No cyanosis or clubbing. Trace bilateral lower extremity edema though L ankle and calf are wrapped. Skin:? Pale,? Warm to touch,dry and intact without rashes, ulcerations or petechiae.? Neuro:? Alert and orientated x3, Psych:? Patient has a well-kept appearance, appropriate affect, mental status attitude thought context and judgment are appropriate for age. Objective Labs 10/11/23 04:20 10/11/23 04:20 Labs: Laboratory Results - last 24 hr 10/10/23 10/11/23 11:57 04:20 WBC 11.3 H 9.3 RBC 4.22 3.69 L Hgb 13.0 11.5 L Hct 39.1 34.1 L MCV 92.6 92.5 MCH 30.7 31.2 MCHC 33.2 33.7 RDW 13.9 13.9 Plt Count 313 267 Neut % (Auto) 82.8 H 60.7 D Lymph % (Auto) 10.8 L 26.5 [place] % (Auto) 5.6 10.6 Eos % (Auto) 0.3 L 1.7 L Baso % (Auto) 0.5 0.5 Neut # (Auto) 9400 H 5700 Lymph # (Auto) 1200 2500 [place] # (Auto) 600 1000 H Eos # (Auto) 0 200 Baso # (Auto) 100 0 Sodium 136 L Potassium 4.0 Chloride 105 Carbon Dioxide 27 BUN 19 H Creatinine 0.81 Estimated GFR > 60 BUN/Creatinine Ratio 23.5 H Glucose 90 Calcium 8.9 Magnesium 2.1 NT-Pro-B Natriuret Pep 1280 H PFSH Medical History Stage 3b chronic kidney disease (CKD) History of cardioversion Persistent atrial fibrillation Systolic heart failure CAD (coronary artery disease) Emphysema of lung Surgical History No pertinent past surgical history Social History household members: none Smoking Status: Former smoker substance use type: does not use Assessment & Plan Assessment & Plan narrative: 1. L trimalleolar ankle fracture - management per orthopedic surgery, current plan for OR on 10/12 after eliquis has been held for a couple of days. - will evaluate recent fatigue and shortness of breath with repeat echo. Currently pending read. - pain control with as needed medications. - NWB for now LLE, will be NWB after surgery as well per orthopedic provider, discussed with today. - with 5 mg prednisone should not require stress dose steroids, though monitor cautiously post operatively. 2. R groin pain - CT ordered with constipation, but no inguinal hernia or lymphadenopathy. Etiology likely musculoskeletal. - work with PT/OT after surgery. Will make mobility difficult due to L NWB status after surgery. 3. Chronic systolic heart failure - no obvious signs of acute failure, but with presenting vague symptoms will recheck an echo. Last EF 55%. - continue home diuretic prn, will not give today, but reassess pending TTE and BP is soft this afternoon. 4. CKD stage III - creatinine appears to be at usual baseline, 0.7 today. 5. Persistent afib on chronic anticoagulation - continue home beta sneha metoprolol succ 100 mg daily - hold apixaban for now prior to surgery. With improvement in creatinine she can increase to 5 mg BID after surgery. 6. Chronic empysema - RT evaluation ordered - continue duo-nebs and standing albuterol with prn albuterol nebs to replace home advair. - bicarb is normal, not likely a chronic CO2 retainer. - no signs of current exacerbation - continue chronic 5 mg prednisone daily. 7. HTN - hold home losartan day of surgery - continue home metoprolol, losartan and prn lasix as noted above. Code: DNR, she declines surrogate decision maker despite discussion at this time. Dispo: Admitted inpatient, possible home vs SNF depending on therapy evaluations after surgery I have utilized all available immediate resources to obtain, update, or review the patient's current medications. DVT: HSQ for now, hold morning of OR. Discussed with ER provider whom helped to contribute to above history, assessment and plan.
--- NOTE | 2023-10-11 13:37 | PM.HP.1 ---
History of Present Illness History of Present Illness Date Patient Seen: 10/11/23 Date of Onset of Symptoms: 10/10/23 Chief complaint: l ankle injury Narrative: Patient seen in evaluation for left ankle injury. She has a past medical history significant for PMH of emphysema, persistent afib, systolic HF (most recent EF around 55% on TTE 2022), CKD stage III. Due to her blood thinners she is remaining inpatient today. [place] She sustained the injury after falling from a curb. She had a dislocation which was reduced in the emergency department yesterday. She has been complaining of recent fatigue and shortness of breath. She has a splint on. Her symptoms have been present since the time of injury. They are partially alleviated by rest and aggravated by any sort of movement. It is a sharp pain which is localized to the ankle [facility] Medical History Stage 3b chronic kidney disease (CKD) History of cardioversion Persistent atrial fibrillation Systolic heart failure CAD (coronary artery disease) Emphysema of lung Surgical History No pertinent past surgical history Social History household members: none Smoking Status: Former smoker substance use type: does not use Meds Home Medications and Allergies Home Medications Medication Instructions Recorded Confirmed Type metoprolol succinate 100 mg 100 mg PO DAILY 10/11/23 10/11/23 History tablet,extended release 24 hr montelukast 10 mg tablet 10 mg PO DAILY 10/11/23 10/11/23 History Allergies Allergy/AdvReac Type Severity Reaction Status Date / Time Penicillins Allergy Verified 10/10/23 10:36 Review of Systems Review of Systems ROS: Yes All systems reviewed with the patient and are negative except as otherwise documented Exam Vital Signs (past 8 hours): - 10/11/23 07:57 10/11/23 09:00 10/11/23 11:00 Temperature 97.2 F L 97.5 F L Pulse Rate 84 84 Respiratory Rate 18 15 Blood Pressure 104/44 L 125/57 L Pulse Oximetry 95 95 94 Oxygen Delivery Method Room Air Oxygen Flow Rate 0 0 Oxygen Delivery Method Room Air Oxygen Flow Rate 0 Narrative Exam Narrative: Left lower extremity maintained in a Orthoglass splint. Flexes extends toes. Toes warm and well perfused. Const General: cooperative Orientation: alert and awake HENMT Head: normal to inspection Ears: hearing grossly normal bilaterally Eyes General: appearance normal, both eyes and all related structures Neck Neck: normal visual inspection Resp Effort & Inspection: normal respiratory effort and able to speak in complete sentences Cardio Pulses: other (peripheral pulses present) Skin Lesions: no lesions Rashes: no rashes Neuro General: patient alert, patient awake and moves all extremities Psych Appearance: grossly normal Objective Imaging Ankle x-ray and CT scan: My impression: Trimalleolar ankle fracture dislocation with subsequent reduction with a small posterior malleolus piece Labs 10/11/23 04:20 10/11/23 04:20 Labs: Laboratory Results - last 24 hr 10/11/23 04:20 WBC 9.3 RBC 3.69 L Hgb 11.5 L Hct 34.1 L MCV 92.5 MCH 31.2 MCHC 33.7 RDW 13.9 Plt Count 267 Neut % (Auto) 60.7 D Lymph % (Auto) 26.5 [place] % (Auto) 10.6 Eos % (Auto) 1.7 L Baso % (Auto) 0.5 Neut # (Auto) 5700 Lymph # (Auto) 2500 [place] # (Auto) 1000 H Eos # (Auto) 200 Baso # (Auto) 0 Sodium 136 L Potassium 4.0 Chloride 105 Carbon Dioxide 27 BUN 19 H Creatinine 0.81 Estimated GFR > 60 BUN/Creatinine Ratio 23.5 H Glucose 90 Calcium 8.9 Magnesium 2.1 NT-Pro-B Natriuret Pep 1280 H Assessment & Plan Assessment and plan (1) Closed right trimalleolar fracture: Status: Acute (2) Closed fracture dislocation of right ankle: Status: Acute Plan We will plan to proceed with operative fixation tomorrow morning after she has had some time for her blood thinners to washout. I will plan to monitor her postoperatively. She will be nonweightbearing postoperatively and this may complicate her hopes of returning home. [place] We may need to have her stay at a group home facility for some time before returning to her home environment. I discussed surgery with her today. We will plan to move forward with it tomorrow unless they are pertinent medical issues which preclude her going to surgery
[2023-10-11] MEDS: ALBUTEROL/IPRATROPIUM 3 ML AMPUL INH (14:17)
[2023-10-11] MEDS: LACTATED RINGERS 1,000 ML 42 ML IV (17:00)
[2023-10-11] MEDS: ACETAMINOPHEN 325 MG TABLET 650 MG PO (18:34)
[2023-10-11] MEDS: ATORVASTATIN 20 MG TABLET PO (20:54)
[2023-10-12] VITALS (17 sets, daily range): BP systolic 102–156; BP diastolic 44–70; PULSE 77–102; RESP 16–20; TEMP 36.4–37.3; O2SAT 88–97
[2023-10-12] MEDS: OXYCODONE IR 5 MG TABLET PO ×3 (03:48→15:24)
[2023-10-12 04:26] LABS: Add Manual Diff / Slide Review NO; Basophils Absolute Auto 0 /uL (0-100); Basophils Percent Auto 0.5 % (0-2); Eosinophils Absolute Auto 200 /uL (0-450); Eosinophils Percent Auto 2.1 % (2-4); Hemoglobin 11.3 g/dL (12.0-16.0); Lymphocytes Absolute Auto 2400 /uL (1100-4500); Lymphocytes Percent Auto 23.8 % (25-40); Mean Corpuscular HGB Conc 34.3 % (30-36); Mean Corpuscular Hemoglobin 31.5 PG (26-34); Monocytes Absolute Auto 1200 /uL (0-900); Monocytes Percent Auto 11.2 % (3-14); Neutrophils Absolute Auto 6400 /uL (1500-7000); Neutrophils Percent Auto 62.4 % (50-75); Platelet Count 259 X10^3/uL (150-400); Red Blood Cell Count 3.58 X10^6/uL (4.0-5.2); White Blood Cell Count 10.3 X10^3/uL (4.5-11.0)
[2023-10-12 04:40] LABS: BUN Creatinine Ratio 25.7 (6-22); Blood Urea Nitrogen 18 mg/dL (7-17); Calcium 8.6 mg/dL (8.4-10.2); Carbon Dioxide 23 mmol/L (22-32); Chloride 105 mmol/L (98-107); Estimated Glomerular Filt Rate > 60 mL/min (>60); Glucose 103 mg/dL (80-110); HEMOLYSIS < 15 (0-50); Magnesium 2.1 mg/dL (1.6-2.3); Potassium 3.8 mmol/L (3.4-5.1); Sodium 135 mmol/L (137-145)
--- NOTE | 2023-10-12 06:46 | PC.NURSE ---
Sharp edges of her splint covered with Kerlix dressing & marline wrap reapplied.
[2023-10-12] MEDS: predniSONE 5 MG TABLET PO (08:52)
[2023-10-12] MEDS: MONTELUKAST 10 MG TABLET PO (08:52)
--- NOTE | 2023-10-12 08:56 | P.PN_ITS ---
Subjective Subjective Date Patient Seen: 10/12/23 Time Patient Seen: 08:56 Interval history: Patient seen in evaluation for left ankle injury. She has a past medical history significant for PMH of emphysema, persistent afib, systolic HF (most recent EF around 55% on TTE 2022), CKD stage III. Due to her blood thinners she is remaining inpatient today. [place] She sustained the injury after falling from a curb. She had a dislocation which was reduced in the emergency department yesterday. She has been complaining of recent fatigue and shortness of breath. She has a splint on. Her symptoms have been present since the time of injury. They are partially alleviated by rest and aggravated by any sort of movement. It is a sharp pain which is localized to the ankle. Fair pain control. She says she has intermittent spasms in left leg that cause her to wake suddenly due to pain. Plan was for operative fixation of the ankle this morning w/ Dr Rossi. However, 2 more emergent cases were added on this morning, and given the unpredictable timing of being able to start surgery today, it was felt it would be in the best interest of the patient to let her eat and be comfortable today and then take her to surgery first thing tomorrow morning. Exam Vital Signs (past 8 hours): - 10/12/23 01:00 10/12/23 04:19 10/12/23 05:00 Temperature 97.5 F L Pulse Rate 82 Respiratory Rate 16 Blood Pressure 121/48 L Pulse Oximetry 93 93 93 Oxygen Delivery Method Room Air Room Air Oxygen Flow Rate 0 10/12/23 07:56 Temperature 98.5 F Pulse Rate 89 Respiratory Rate 16 Blood Pressure 114/47 L Pulse Oximetry 93 Oxygen Delivery Method Oxygen Flow Rate Fraction of Inspired Oxygen 21 SaO2/FiO2 Ratio 452 Oxygen Delivery Method Room Air Oxygen Flow Rate 0 Narrative Exam Narrative: Pt able to wiggle toes on left, sensation to touch intact. Splint in place. There is a dressing to the lateral leg just below the knee joint where pt states she was cut by her original splint. Objective Labs 10/12/23 04:12 10/12/23 04:12 Labs: Laboratory Results - last 24 hr 10/12/23 04:12 WBC 10.3 RBC 3.58 L Hgb 11.3 L Hct 33.0 L MCV 92.0 MCH 31.5 MCHC 34.3 RDW 14.0 Plt Count 259 Neut % (Auto) 62.4 Lymph % (Auto) 23.8 L [place] % (Auto) 11.2 Eos % (Auto) 2.1 Baso % (Auto) 0.5 Neut # (Auto) 6400 Lymph # (Auto) 2400 [place] # (Auto) 1200 H Eos # (Auto) 200 Baso # (Auto) 0 Sodium 135 L Potassium 3.8 Chloride 105 Carbon Dioxide 23 BUN 18 H Creatinine 0.70 Estimated GFR > 60 BUN/Creatinine Ratio 25.7 H Glucose 103 Calcium 8.6 Magnesium 2.1 PFSH Medical History Stage 3b chronic kidney disease (CKD) History of cardioversion Persistent atrial fibrillation Systolic heart failure CAD (coronary artery disease) Emphysema of lung Surgical History No pertinent past surgical history Social History household members: none Smoking Status: Former smoker substance use type: does not use Assessment & Plan Assessment and plan (1) Closed right trimalleolar fracture: Status: Acute Plan: ORIF ankle fracture first thing tomorrow morning. Ok to eat today, NPO after midnight. Will add cyclobenzaprine to help w/ muscle spasm.
--- NOTE | 2023-10-12 09:38 | P.PN_ITS ---
Subjective Subjective Interval history: She is doing well. She is some pain in the ankle when she falls asleep in the foot moves. She also notes chronic right groin pain. Dr. Acosta evaluated with ultrasound yesterday there is no evidence of a hernia in the groin. She denies any chest pain, or dyspnea. Exam Vital Signs (past 8 hours): - 10/12/23 04:19 10/12/23 05:00 10/12/23 07:56 Temperature 97.5 F L 98.5 F Pulse Rate 82 89 Respiratory Rate 16 16 Blood Pressure 121/48 L 114/47 L Pulse Oximetry 93 93 93 Oxygen Delivery Method Room Air Oxygen Flow Rate 0 Fraction of Inspired Oxygen 21 SaO2/FiO2 Ratio 452 Oxygen Delivery Method Room Air Oxygen Flow Rate 0 Narrative Exam Narrative: NAD, oriented. Fluent speech. Lungs are clear with normal rate and effort. Heart is regular, no murmur. Abdomen is soft, nontender. Extremities are free of edema, the left ankle is wrapped. Toes on the left foot have good cap refill. Her left elbow has a dressing over a skin tear. Objective Labs 10/12/23 04:12 10/12/23 04:12 Labs: Laboratory Results - last 24 hr 10/12/23 04:12 WBC 10.3 RBC 3.58 L Hgb 11.3 L Hct 33.0 L MCV 92.0 MCH 31.5 MCHC 34.3 RDW 14.0 Plt Count 259 Neut % (Auto) 62.4 Lymph % (Auto) 23.8 L [place] % (Auto) 11.2 Eos % (Auto) 2.1 Baso % (Auto) 0.5 Neut # (Auto) 6400 Lymph # (Auto) 2400 [place] # (Auto) 1200 H Eos # (Auto) 200 Baso # (Auto) 0 Sodium 135 L Potassium 3.8 Chloride 105 Carbon Dioxide 23 BUN 18 H Creatinine 0.70 Estimated GFR > 60 BUN/Creatinine Ratio 25.7 H Glucose 103 Calcium 8.6 Magnesium 2.1 PFSH Medical History Stage 3b chronic kidney disease (CKD) History of cardioversion Persistent atrial fibrillation Systolic heart failure CAD (coronary artery disease) Emphysema of lung Surgical History No pertinent past surgical history Social History household members: none Smoking Status: Former smoker substance use type: does not use Assessment & Plan Assessment & Plan narrative: 1. L trimalleolar ankle fracture, present on admission and active. - management per orthopedic surgery, current plan for OR on 10/12 after eliquis has been held for a couple of days. - will evaluate recent fatigue and shortness of breath with repeat echo. Currently pending read. - pain control with as needed medications. - NWB for now LLE, will be NWB after surgery as well per orthopedic provider, discussed with today. - with 5 mg prednisone should not require stress dose steroids, though monitor cautiously post operatively. 2. R groin pain, present on admission and chronic. - CT ordered with constipation, but no inguinal hernia or lymphadenopathy. Etiology likely musculoskeletal. - work with PT/OT after surgery. Will make mobility difficult due to L NWB status after surgery. 3. Chronic systolic heart failure, present on admission and stable. - no obvious signs of acute failure, but with presenting vague symptoms will recheck an echo. Last EF 55%. - continue home diuretic prn, will not give today, but reassess pending TTE and BP is soft this afternoon. 4. CKD stage III, present on admission and stable. - creatinine appears to be at usual baseline, 0.7 today. 5. Persistent afib on chronic anticoagulation, present on admission and stable. - continue home beta sneha metoprolol succ 100 mg daily - hold apixaban for now prior to surgery. With improvement in creatinine she can increase to 5 mg BID after surgery. 6. Chronic COPD, present on admission and stable. - RT evaluation ordered - continue duo-nebs and standing albuterol with prn albuterol nebs to replace home advair. - bicarb is normal, not likely a chronic CO2 retainer. - no signs of current exacerbation - continue chronic 5 mg prednisone daily. 7. HTN, present on admission and stable. - hold home losartan day of surgery - continue home metoprolol, losartan and prn lasix as noted above. Code: DNR, she declines surrogate decision maker despite discussion at this time. Dispo: Admitted inpatient, possible home vs SNF depending on therapy evaluations after surgery Social Hx: She lives alone and [place]. DVT: HSQ for now, hold morning of OR.
[2023-10-12] MEDS: METOPROLOL ER 50 MG TABLET 100 MG PO (10:42)
--- NOTE | 2023-10-12 10:44 | P.PN_ITS ---
Subjective Subjective Interval history: Surgery initially planned for today as a 1st start case however there were 2 more urgent surgeries which bumped her later in the day. As this is a nonurgent procedure I have moved the surgery to tomorrow to minimize the amount of time that she will spend NPO. I discussed this with her and she was very thankful to be able to continue eating today. We should be able to get her surgery done as a 1st start tomorrow and thereby minimize the inconvenience for her. There will be no real changes to her care once surgery is completed as she will remain nonweightbearing and will not be able to discharge home. I am still anticipating she will go to a half-way facility [place] and will have significant challenges maintaining her nonweightbearing status while she is home alone Exam Vital Signs (past 8 hours): - 10/12/23 04:19 10/12/23 05:00 10/12/23 07:56 Temperature 97.5 F L 98.5 F Pulse Rate 82 89 Respiratory Rate 16 16 Blood Pressure 121/48 L 114/47 L Pulse Oximetry 93 93 93 Oxygen Delivery Method Room Air Oxygen Flow Rate 0 10/12/23 10:42 Temperature Pulse Rate 91 H Respiratory Rate Blood Pressure 118/45 L Pulse Oximetry Oxygen Delivery Method Oxygen Flow Rate Fraction of Inspired Oxygen 21 SaO2/FiO2 Ratio 452 Oxygen Delivery Method Room Air Oxygen Flow Rate 0 Objective Labs 10/12/23 04:12 10/12/23 04:12 Labs: Laboratory Results - last 24 hr 10/12/23 04:12 WBC 10.3 RBC 3.58 L Hgb 11.3 L Hct 33.0 L MCV 92.0 MCH 31.5 MCHC 34.3 RDW 14.0 Plt Count 259 Neut % (Auto) 62.4 Lymph % (Auto) 23.8 L [place] % (Auto) 11.2 Eos % (Auto) 2.1 Baso % (Auto) 0.5 Neut # (Auto) 6400 Lymph # (Auto) 2400 [place] # (Auto) 1200 H Eos # (Auto) 200 Baso # (Auto) 0 Sodium 135 L Potassium 3.8 Chloride 105 Carbon Dioxide 23 BUN 18 H Creatinine 0.70 Estimated GFR > 60 BUN/Creatinine Ratio 25.7 H Glucose 103 Calcium 8.6 Magnesium 2.1 [facility] Medical History Stage 3b chronic kidney disease (CKD) History of cardioversion Persistent atrial fibrillation Systolic heart failure CAD (coronary artery disease) Emphysema of lung Surgical History No pertinent past surgical history Social History household members: none Smoking Status: Former smoker substance use type: does not use
--- NOTE | 2023-10-12 11:22 | CM.DPC ---
Addendum entered by Maritza Patterson R.N. 10/12/23 15:22: Met with patient today. Introduced self and role. Discussed discharge planning. Patient is having her surgery in the morning. Mentioned rehab, patient really wants to try to go home, worried about her cats, and her home. Her friend, Tristan, is taking care of the cats. Let her know that she has the option for short term skilled, [facility], but still would like to try to go home. Asked her if her friend, Tristan, can stay with her, stated, she was not sure. Patient also has a steep driveway to get up. Asked her if she can stay with a friend while she recuperates, stated, she could possibly consider this'. Asked her to think about rehab. She will be having her surgery tomorrow am, will also have to look at her weight bearing status post surgery. As indicated in notes, [facility] can accept, still unsure if they can accept Saturday. [facility] most likely can, but patient will need to consent to go. Will have DC Planning follow up again tomorrow post surgery, and see what her precautions are, and how she does with therapy. Addendum entered by Maritza Patterson R.N. 10/12/23 12:09: Called over at [facility], spoke with Issa, who has the phone this weekend. Confirmed that they are not taking admissions today. Asked her if they can accept this patient Saturday, since her surgery is tomorrow. She will check in with her staff, and get back to this DC Vocational Rehabilitation Supervisor. PASSR was already completed by CHACHO Davila. Original Note: DCP Cont: Notes from ortho has indicated that her surgery for her ankle will occur tomorrow am, so she can then be NPO. Plans at this time, most likely will be [facility], notes from CHACHO Davila, indicate also that [facility] can also accept, if she is medically ready tomorrow. At this time, plan is for surgery tomorrow. Will also follow up with [facility] today. P: DCP to continue to work on getting patient to either [facility] or [facility], will also see how she does with P.T. post surgery. Maritza Patterson RN/Electrical Prospecting Operator
[2023-10-12] MEDS: ALBUTEROL/IPRATROPIUM 3 ML AMPUL INH ×2 (12:06→20:20)
[2023-10-12] MEDS: NYSTATIN POWDER 15GM 1 APPLIC TOP (15:24)
[2023-10-12] MEDS: LACTATED RINGERS 1,000 ML 42 ML IV (19:48)
[2023-10-12] MEDS: ATORVASTATIN 20 MG TABLET PO (19:48)
[2023-10-12] MEDS: HEPARIN 5,000 UNIT/ML VIAL 5000 UNIT SUBCUT (19:48)
[2023-10-13] VITALS (21 sets, daily range): BP systolic 116–156; BP diastolic 45–79; PULSE 73–100; RESP 13–22; TEMP 36.2–36.9; O2SAT 85–97; BMI 33.3
--- NOTE | 2023-10-13 | DI.RAD.S_ITS ---
PROCEDURE: XR ANKLE LT 2V INDICATIONS: LT ANKLE ORIF TECHNIQUE: Multiple spot fluoroscopic intraoperative images of the ankle. COMPARISON: Located Within [facility], CT, CT ANKLE LEFT WITHOUT, 10/10/2023, 11:01. Located Within [facility], CR, XR ANKLE LT MIN 3V, 10/10/2023, 10:52. Located Within [facility], CR, XR ANKLE LT 2V, 10/10/2023, 13:13. FINDINGS: Multiple spot fluoroscopic intraoperative images are seen from bimalleolar fracture fixation. Hardware components are in expected positions. Osseous alignment has improved. IMPRESSION: Intraoperative fluoroscopic guidance was used for bimalleolar fracture fixation. Hardware components are in expected positions. Approved by: Richie Dodson M.D. on 10/13/2023 at 13:28
[2023-10-13 06:47] LABS: Add Manual Diff / Slide Review NO; Basophils Absolute Auto 0 /uL (0-100); Basophils Percent Auto 0.4 % (0-2); Eosinophils Absolute Auto 200 /uL (0-450); Eosinophils Percent Auto 1.6 % (2-4); Hematocrit 32.4 % (36-46); Lymphocytes Absolute Auto 2600 /uL (1100-4500); Lymphocytes Percent Auto 24.5 % (25-40); Mean Corpuscular HGB Conc 34.1 % (30-36); Mean Corpuscular Hemoglobin 31.4 PG (26-34); Monocytes Absolute Auto 1100 /uL (0-900); Monocytes Percent Auto 10.3 % (3-14); Neutrophils Absolute Auto 6800 /uL (1500-7000); Neutrophils Percent Auto 63.2 % (50-75); Platelet Count 240 X10^3/uL (150-400); Red Blood Cell Count 3.52 X10^6/uL (4.0-5.2); Red Cell Distribution Width 13.8 % (11.6-14.8); White Blood Cell Count 10.7 X10^3/uL (4.5-11.0)
[2023-10-13 06:59] LABS: BUN Creatinine Ratio 20.3 (6-22); Blood Urea Nitrogen 14 mg/dL (7-17); Calcium 8.3 mg/dL (8.4-10.2); Carbon Dioxide 24 mmol/L (22-32); Chloride 103 mmol/L (98-107); Estimated Glomerular Filt Rate > 60 mL/min (>60); HEMOLYSIS < 15 (0-50)
[2023-10-13 07:01] LABS: Glucose 102 mg/dL (80-110); Potassium 3.6 mmol/L (3.4-5.1); Sodium 134 mmol/L (137-145)
[2023-10-13] MEDS: METOPROLOL ER 50 MG TABLET 100 MG PO (07:36)
--- NOTE | 2023-10-13 08:02 | PM.PREOP ---
Pre-operative Note Interval Note History & Physical reviewed/Exam performed by Physician: Yes Changes to H&P: No
--- NOTE | 2023-10-13 08:02 | PM.PN.1 ---
Subjective Subjective Interval history: Patient is seen this morning. Resting comfortably. No acute distress. Nothing to eat or drink after midnight. No new issues Exam Vital Signs (past 8 hours): - 10/13/23 02:00 10/13/23 03:00 10/13/23 06:00 Temperature 98.2 F 97.7 F Pulse Rate 94 H 99 H Respiratory Rate 16 20 Blood Pressure 140/57 L 126/45 L Pulse Oximetry 93 97 94 Oxygen Delivery Method Room Air Oxygen Flow Rate 0 0 10/13/23 07:36 Temperature Pulse Rate 99 H Respiratory Rate Blood Pressure 126/55 L Pulse Oximetry Oxygen Delivery Method Oxygen Flow Rate Fraction of Inspired Oxygen 21 SaO2/FiO2 Ratio 419 Oxygen Delivery Method Room Air Oxygen Flow Rate 0 Narrative Exam Narrative: Left lower extremity in splint. Exposed toes warm well perfused. Flexes and extends toes. Venous staining on contralateral leg Objective Imaging Left ankle imaging: My impression: Trimalleolar fracture dislocation with subsequent reduction and splinting. Small posterior malleolus piece Labs 10/13/23 06:25 10/13/23 06:25 Labs: Laboratory Results - last 24 hr 10/13/23 06:25 WBC 10.7 RBC 3.52 L Hgb 11.0 L Hct 32.4 L MCV 92.0 MCH 31.4 MCHC 34.1 RDW 13.8 Plt Count 240 Neut % (Auto) 63.2 Lymph % (Auto) 24.5 L [place] % (Auto) 10.3 Eos % (Auto) 1.6 L Baso % (Auto) 0.4 Neut # (Auto) 6800 Lymph # (Auto) 2600 [place] # (Auto) 1100 H Eos # (Auto) 200 Baso # (Auto) 0 Sodium 134 L Potassium 3.6 Chloride 103 Carbon Dioxide 24 BUN 14 Creatinine 0.69 Estimated GFR > 60 BUN/Creatinine Ratio 20.3 Glucose 102 Calcium 8.3 L Magnesium 2.0 PFSH Medical History Stage 3b chronic kidney disease (CKD) History of cardioversion Persistent atrial fibrillation Systolic heart failure CAD (coronary artery disease) Emphysema of lung Surgical History No pertinent past surgical history Social History household members: none Smoking Status: Former smoker substance use type: does not use Assessment & Plan Assessment and plan (1) Closed right trimalleolar fracture: Status: Acute (2) Closed fracture dislocation of right ankle: Status: Acute Plan 83-year-old female with multiple medical comorbidities with a trimalleolar fracture dislocation. The posterior malleolus piece is small and has minimal joint surface involvement. I plan to use additional fixation beyond what would typically be used given her age and comorbidities. I will plan for medial malleolus fixation with a lateral locking plate and multiple syndesmotic screws. She will be nonweightbearing in a splint afterwards. She lives on an [place] alone and therefore I anticipate she will need to stay in a alf facility postoperatively. She has been marked and consented for surgery
[2023-10-13] MEDS: LACTATED RINGERS 1,000 ML 42 ML IV ×3 (08:18→11:47)
--- NOTE | 2023-10-13 08:20 | SUR.HOLD ---
Block start time [0808] . Monitoring initiated and maintained throughout procedure. Oxygen and medications given per anesthesiologist instructions. Patient remained stable throughout procedure, no adverse reactions noted. Block end time [ 0835].
[2023-10-13] MEDS: CEFAZOLIN 2 GM/100 ML PREMIX 100 ML IV (08:45)
--- NOTE | 2023-10-13 08:57 | PM.PN.1 ---
Subjective Subjective Interval history: S/P ORIF this AM. Good pain control. No CP or dyspnea. Exam Vital Signs (past 8 hours): - 10/13/23 02:00 10/13/23 03:00 10/13/23 06:00 Temperature 98.2 F 97.7 F Pulse Rate 94 H 99 H Respiratory Rate 16 20 Blood Pressure 140/57 L 126/45 L Pulse Oximetry 93 97 94 Oxygen Delivery Method Room Air Oxygen Flow Rate 0 0 10/13/23 07:36 10/13/23 08:01 10/13/23 08:19 Temperature 98.4 F Pulse Rate 99 H 96 H 100 H Respiratory Rate 16 13 Blood Pressure 126/55 L 140/55 L 137/52 L Pulse Oximetry 95 97 Oxygen Delivery Method Nasal Cannula Nasal Cannula Oxygen Flow Rate 3 3 Fraction of Inspired Oxygen 21 SaO2/FiO2 Ratio 419 Oxygen Delivery Method Nasal Cannula Oxygen Flow Rate 3 Narrative Exam Narrative: NAD, oriented. Fluent speech. Lungs are clear with normal rate and effort. Heart is regular, no murmur. Abdomen is soft, nontender. Extremities are free of edema, the left ankle is wrapped. Toes on the left foot have good cap refill. Her left elbow has a dressing over a skin tear. Objective Labs 10/13/23 06:25 10/13/23 06:25 Labs: Laboratory Results - last 24 hr 10/13/23 06:25 WBC 10.7 RBC 3.52 L Hgb 11.0 L Hct 32.4 L MCV 92.0 MCH 31.4 MCHC 34.1 RDW 13.8 Plt Count 240 Neut % (Auto) 63.2 Lymph % (Auto) 24.5 L [place] % (Auto) 10.3 Eos % (Auto) 1.6 L Baso % (Auto) 0.4 Neut # (Auto) 6800 Lymph # (Auto) 2600 [place] # (Auto) 1100 H Eos # (Auto) 200 Baso # (Auto) 0 Sodium 134 L Potassium 3.6 Chloride 103 Carbon Dioxide 24 BUN 14 Creatinine 0.69 Estimated GFR > 60 BUN/Creatinine Ratio 20.3 Glucose 102 Calcium 8.3 L Magnesium 2.0 PFSH Medical History Stage 3b chronic kidney disease (CKD) History of cardioversion Persistent atrial fibrillation Systolic heart failure CAD (coronary artery disease) Emphysema of lung Surgical History No pertinent past surgical history Social History household members: none Smoking Status: Former smoker substance use type: does not use Assessment & Plan Assessment & Plan narrative: 1. L trimalleolar ankle fracture, present on admission and active. - ORIF performed 10/13. No complications. - with 5 mg prednisone should not require stress dose steroids, though monitor cautiously post operatively. 2. R groin pain, present on admission and chronic. - CT ordered with constipation, but no inguinal hernia or lymphadenopathy. Etiology likely musculoskeletal. 3. Chronic systolic heart failure, present on admission and stable. - no obvious signs of acute failure, but with presenting vague symptoms will recheck an echo. Last EF 55%. - continue home diuretic prn. 4. CKD stage III, present on admission and stable. - creatinine appears to be at usual baseline, 0.7 today. 5. Persistent afib on chronic anticoagulation, present on admission and stable. - continue home beta sneha metoprolol succ 100 mg daily - hold apixaban for now prior to surgery. With improvement in creatinine she can increase to 5 mg BID after surgery. - Will resume Apixiban 10/14 6. Chronic COPD, present on admission and stable. - continue duo-nebs and standing albuterol with prn albuterol nebs to replace home advair. - no signs of current exacerbation - continue chronic 5 mg prednisone daily. 7. HTN, present on admission and stable. - hold home losartan day of surgery - continue home metoprolol, losartan and prn lasix as noted above. Code: DNR, she declines surrogate decision maker despite discussion at this time. Dispo: Admitted inpatient, SNF likely depending on therapy evaluations after surgery Social Hx: She lives alone and [place]. DVT: HSQ for now, hold morning of OR.
--- NOTE | 2023-10-13 09:30 | SUR.OPER ---
Supine on padded OR bed, head on pillow, arms secured on padded arm boards at <90 degrees abduction, legs uncrossed, safety belt at thigh, tape over blanket over right lower leg. left leg draped free and elevated by stack of blankets which are also taped in place.
[2023-10-13] MEDS: ACETAMINOPHEN IV 1,000 MG/100 ML VIAL 400 MG IV (10:10)
--- NOTE | 2023-10-13 11:12 | CM.DPC ---
DCP Surg Cont: SW spoke to Ortho MD and confirmed pt to have ankle surgery this morning with plans to remain non-weight bearing and to work with PT/OT post surgery towards likely need of SNF. SW updated [facility] and [facility] on delayed surgery yesterday to this morning and will send PT/OT eval post surg today towards determining which can accept when pt is medically stable based on staffing and bed availability. Pt's preference is home with HH if possible and then 1) [facility] due to location or 2) [facility] if SNF needed. Plan: SW to follow closely post surgery this morning and then PT/OT eval and recommendations to determine home with [facility] vs SNF at [facility] vs [facility]. CHACHO Jiang
[2023-10-13] MEDS: BUPIVACAINE 0.25% (PF) VIAL 30 ML INJ (11:42)
--- NOTE | 2023-10-13 12:26 | P.OP_ITS ---
Operative Date/Time/Diagnoses Date of procedure: 10/13/23 Pre-op diagnosis: Trimalleolar left ankle fracture dislocation Post-op diagnosis: same Procedure & Clinicians Procedure: Open reduction internal fixation of medial and lateral malleolus with intraoperative assessment of posterior malleolus fracture Same procedure as scheduled: Yes Surgeon: Raciel Rossi Click Yes if Unassisted: Yes Anesthesia Type: General, Peripheral nerve block and Local Operative Notes Estimated Blood Loss (mL): 50 Tourniquet time (min): 120 Procedure in detail: This 83-year-old female patient sustained a ground level fall and was admitted with left ankle pain with diagnosis on x-ray of a trimalleolar ankle fracture dislocation. She was reduced and splinted in the emergency department. She had numerous comorbidities which are outlined below: 1. Asthma 2. COPD/emphysema as a former smoker with a greater than 30 pack-year history 3. Recent hospitalization for pneumonia in July 2023 4. Orthopnea 5. Atrial fibrillation on Eliquis 6. Coronary artery disease 7. Congestive heart failure with ejection fraction of 55% on transthoracic echocardiogram as of 2022 8. Diastolic hypotension during this admission 9. Questionable diagnosis of rheumatoid arthritis 10. Chronic kidney disease stage IIIB 11. Obesity with BMI of 33 12. Chronic low-dose steroids with prednisone 5 mg per day 13. Sacral decubitus ulcers noted during preparation for procedure today as well as a skin tear on the left knee 14. Anemia with hemoglobin 11 preoperatively Additionally [place] and requires very transi t to receive medical care here. Given her medical and social situation I made multiple modifications to my typical preoperative plan in her case. I plan to use supplementary fixation across the syndesmosis beyond the normal number of screws necessary to stabilize the syndesmosis to provide additional stability for the medial and lateral malleolus fractures. I also planned to utilize a an incisional wound VAC given her high risk of wound breakdown. I also anticipated a intermediate facility stay postoperatively and have directed social work and case management to begin planning this prior to surgery. Her case was delayed to allow her Eliquis to washout prior to surgery. I discussed the planned procedure in detail with the patient. I answered all of her questions. I marked the operative site. I signed a informed consent form. The patient understood and wished to proceed. Prior to the procedure a preoperative block was performed by anesthesia. She was brought back to the op erating room and placed supine on the operating table. She was prepped and draped in the usual sterile fashion. A time-out procedure was performed. Ancef was administered. Tourniquet was inflated Prior to incision I obtained a lateral radiograph of the contralateral ankle for comparison purposes during the reduction of the syndesmosis at the conclusion of the procedure. I mapped out the medial incision and incised down to bone. I reduced the medial malleolus fracture with a pointed reduction forceps. I inserted a long drill bit for a 3.5 mm screw and verified appropriate positioning at the tip of the medial malleolus on the AP radiograph and the lateral radiograph. I passed it extra-articularly and verified this on fluoroscopic images. I passed it out the lateral cortex of the tibia. I measured that screw for 95 mm. I then placed a 2nd long drill bit in similar position to the 1st. I verified its positioning on AP and lateral images. I measured that drill to be 100 mm. I placed the 95 mm screw and then the 100 mm screw as well. Both had good purchase. I seated both down to bone. I then moved to the lateral malleolus. I planned out an incision which would allow me to curve anteriorly to assess the reduction in the incisura at the conclusion of my fixation. I made this incision and dissected down to bone. I identified and protected the superficial peroneal nerve. I identified the fracture edges and reduced it with a pointed reduction forceps. I initially placed a lag screw although this introduced comminution to the fracture. I placed a 2nd lag screw in a separate trajectory. This also introduced comminution of the fracture however it held it provisionally so I left it in place temporarily. I placed a lateral plate and manipulated it into an appropriate position on AP and lateral fluoroscopic images. I held the plate in place with a K-wire proximally and an awl distally. I filled up all of the locking screw holes distally with 2.7 mm locking screws. I placed a nonlocking screw in the most proximal hole in the plate as well. This held the plate to the bone and I verified that it had remained reduced on AP and lateral images. I was satisfied with my lateral reduction. I then dissected over to the junction between the talus tibia and fibula. I noted that the articular surfaces were appropriately reduced in that anterior position. I noted that the anterior inferior tibiofibular ligament had avulsed off. Reflecting this allowed me good visualization. I was satisfied with the reduction. I also evaluated a lateral radiograph and compared it to the uninjured side, finding appropriate fibular position in the anterior- posterior plane relative to the tibia. While maintaining that position I then passed multiple locking screws through the fibula across the tibia. These did not result in any displacement of the syndesmotic reduction. I additionally placed for nonlocking screws above the fracture in the portion of the fibula which would have been too proximal for me to obtain syndesmotic trajectories. I obtained final AP and lateral and mortise fluoroscopic images. These showed appropriate reduction of both fractures and appropriate hardware positioning. I evaluated the posterior malleolus fracture and noted that it was well reduced. I elected to treat that nonoperatively based on my intraoperative assessment. All wounds were copiously irrigated. I closed the anterior inferior tibiofibular ligament with 0 Vicryl. I closed subcutaneous tissue over the plate with 2-0 Vicryl. I closed the skin with 2-0 Vicryl. I used a running 3-0 nylon in the lateral tissues. Used the same closure for the medial side. I placed a rachel incisional wound VAC on the lateral side and a soft dressing with Xeroform on the medial side. I placed a splint and held it in neutral dorsiflexion until it had dried. The patient was awoken from anesthesia and transferred off the operating table without any apparent immediate complications Post-operative Plan for aftercare: 1. Nonweightbearing left lower extremity 2. Maintain rachel incisional wound VAC and splint until postoperative follow up appointment in 2 weeks 3. Resume Eliquis 24 hours postoperatively 4. Anticipate patient will discharge to a intermediate facility
--- NOTE | 2023-10-13 12:51 | PT-IP ANOTE ---
PT order received. Pt just getting out of surgery. Con't PT efforts next date.
[2023-10-13] MEDS: predniSONE 5 MG TABLET PO (13:31)
[2023-10-13] MEDS: MONTELUKAST 10 MG TABLET PO (13:31)
--- NOTE | 2023-10-13 14:00 | PC.NURSE ---
Pt returned from PACU at 1315, report given at bedside. A&Ox4, no c/o pain, VSS on 3L NC. rachel dressing and splint to LLE c/d/i. Able to wiggle toes but only feeling sensation in great toe of L foot. Lung sounds diminished, pt c/o chest congestion, breathing treatment administered in PACU before returning to the floor. Fong catheter in place, draining clear yellow urine. Patient reoriented to room and call light, resting comfortably in bed eating lunch. Call light within reach, bed in low position, SCD to RLE.
[2023-10-13] MEDS: ALBUTEROL/IPRATROPIUM 3 ML AMPUL INH (17:02)
[2023-10-13] MEDS: CEFAZOLIN VIAL 1 GM in SODIUM CHLORIDE 0.9% 100 ML IV (17:07)
[2023-10-13] MEDS: SENNOSIDES 8.6 MG TABLET 17.2 MG PO (20:18)
[2023-10-13] MEDS: DOCUSATE 100 MG CAPSULE PO (20:18)
[2023-10-13] MEDS: SODIUM CHLORIDE 0.9% FLUSH 10 ML IV (20:19)
[2023-10-13] MEDS: ATORVASTATIN 20 MG TABLET PO (20:19)
[2023-10-13] MEDS: BUDESONIDE 0.5 MG/2 ML NEB INH (21:23)
--- NOTE | 2023-10-13 23:59 | PC.NURSE ---
Patient is alert and oriented. YSLETA DEL SUR. Breath sounds CTA but currently with oxygen since desats when asleep. Started out shift on 3L/min oxygen but was 97% so decreased to 2L/min and will continue to wean as able during the night. HRR. Denied nausea. BT very hypoactive and stated she had not passed flatus since surgery; last BM was 10/10. Indwelling catheter is patent; urine is dark yellow. Assisting her to reposition q2h; allevyn dressing to coccyx is CDI. Bruises noted to all extremites. Has allevyn dressing to left elbow which is intact but approx 25% covered with dark red drainage. Allevyn's to left lateral LE all CDI. At shift change she was still experiencing some numbness in anterior toes of left LE but at time of assessment all numbness had resolved and CMS intact. Denied any pain. BRENDA dressing to left LE is intact and functioning; has splint to LE with marline wrap covering. Left LE is elevated on pillows. Wearing an SCD to right LE although requested it be left off at 2300 so removed and patient reminded to ankle wave. Fall risk score is high and bed alarm is activated.
[2023-10-14] VITALS (13 sets, daily range): BP systolic 107–133; BP diastolic 45–56; PULSE 74–102; RESP 16–24; TEMP 36.3–36.6; O2SAT 92–96
[2023-10-14] MEDS: CEFAZOLIN VIAL 1 GM in SODIUM CHLORIDE 0.9% 100 ML IV (00:10)
[2023-10-14 05:56] LABS: Hematocrit 31.3 % (36-46); Hemoglobin 10.6 g/dL (12.0-16.0); Mean Corpuscular HGB Conc 33.9 % (30-36); Mean Corpuscular Volume 91.6 fL (80-100); Platelet Count 243 X10^3/uL (150-400); Red Blood Cell Count 3.42 X10^6/uL (4.0-5.2); Red Cell Distribution Width 13.7 % (11.6-14.8); White Blood Cell Count 15.5 X10^3/uL (4.5-11.0)
[2023-10-14] MEDS: ALBUTEROL/IPRATROPIUM 3 ML AMPUL INH ×3 (07:27→20:30)
[2023-10-14] MEDS: BUDESONIDE 0.5 MG/2 ML NEB INH ×2 (07:27→20:30)
--- NOTE | 2023-10-14 07:43 | PM.PNPO.1 ---
Subjective Subjective Date Patient Seen: 10/14/23 Time Patient Seen: 07:43 Interval history: Sitting up in bed, receiving breathing treatment. Good pain control. Lives alone in [place]; plan is for discharge to SNF prior to going home. Please note that in several places throughout this pts admission, the chart notes a right ankle fracture. The fracture and surgery is on the LEFT. Exam Vital Signs (past 8 hours): - 10/13/23 23:52 10/13/23 23:52 10/14/23 04:18 Temperature 97.2 F L 97.6 F Pulse Rate 79 74 Respiratory Rate 22 24 Blood Pressure 119/54 L 117/46 L Pulse Oximetry 93 93 95 Oxygen Delivery Method Nasal Cannula Oxygen Flow Rate 2 2 2 10/14/23 04:18 Temperature Pulse Rate Respiratory Rate Blood Pressure Pulse Oximetry 95 Oxygen Delivery Method Nasal Cannula Oxygen Flow Rate 2 Fraction of Inspired Oxygen 21 SaO2/FiO2 Ratio 419 Oxygen Delivery Method Nasal Cannula Oxygen Flow Rate 2 Narrative Exam Narrative: Splint in place to LLE. Pt able to wiggle toes, sensation to touch intact. BRENDA dressing functioning. Objective Labs 10/14/23 05:43 10/13/23 06:25 Labs: Laboratory Results - last 24 hr 10/14/23 05:43 WBC 15.5 H RBC 3.42 L Hgb 10.6 L Hct 31.3 L MCV 91.6 MCH 31.0 MCHC 33.9 RDW 13.7 Plt Count 243 PFSH Medical History Stage 3b chronic kidney disease (CKD) History of cardioversion Persistent atrial fibrillation Systolic heart failure CAD (coronary artery disease) Emphysema of lung Surgical History No pertinent past surgical history Social History household members: none Smoking Status: Former smoker substance use type: does not use Assessment & Plan Post-op Assessment and plan (1) Left trimalleolar fracture: Assessment and Plan narrative: Non-weightbearing to LLE for 2 weeks. At that time, she should follow up w/ ortho for wound check, re-imaging, and placement into a tall boot. Activity can be advanced as appropriate based on imaging. Pt is chronically anticoagulated w/ Eliquis and is to restart today. Pain control per hospitalist service. Postoperative Procedures: Procedures Operation Date: 10/13/23 08:00 Actual Procedure Side Surgeon p ORIF Ankle Fracture Left Raciel Rossi MD Postoperative day: 1
[2023-10-14] MEDS: polyethylene glycoL 3350 17 GM POWD.PACK PO (08:31)
[2023-10-14] MEDS: MONTELUKAST 10 MG TABLET PO (08:31)
[2023-10-14] MEDS: DOCUSATE 100 MG CAPSULE PO (08:31)
[2023-10-14] MEDS: LOSARTAN 50 MG TABLET PO (08:31)
[2023-10-14] MEDS: OXYCODONE IR 5 MG TABLET PO (08:32)
[2023-10-14] MEDS: APIXABAN 5 MG TABLET 2.5 MG PO (08:33)
[2023-10-14] MEDS: METOPROLOL ER 50 MG TABLET 100 MG PO (08:33)
[2023-10-14] MEDS: predniSONE 5 MG TABLET PO (08:33)
[2023-10-14] MEDS: SODIUM CHLORIDE 0.9% FLUSH 10 ML IV ×2 (08:38→20:44)
--- NOTE | 2023-10-14 09:12 | P.PN_ITS ---
Subjective Subjective Interval history: Doing well, no shortness of breath. No chest pain. Minimal ankle pain. Exam Vital Signs (past 8 hours): - 10/14/23 04:18 10/14/23 04:18 10/14/23 08:00 Temperature 97.6 F 97.4 F L Pulse Rate 74 100 H Respiratory Rate 24 18 Blood Pressure 117/46 L 112/56 L Pulse Oximetry 95 95 93 Oxygen Delivery Method Nasal Cannula Oxygen Flow Rate 2 2 0 10/14/23 08:31 10/14/23 08:33 Temperature Pulse Rate 100 H 100 H Respiratory Rate Blood Pressure 112/55 L 112/55 L Pulse Oximetry Oxygen Delivery Method Oxygen Flow Rate Fraction of Inspired Oxygen 21 SaO2/FiO2 Ratio 419 Oxygen Delivery Method Nasal Cannula Oxygen Flow Rate 0 Narrative Exam Narrative: NAD, oriented. Fluent speech. Calm. Lungs are clear with normal rate and effort. Heart is regular, no murmur. Abdomen is soft, non-tender. Extremities are free of edema, the left ankle is wrapped. Toes on the left foot have good cap refill. Her left elbow has a dressing over a skin tear. Objective Labs 10/14/23 05:43 10/13/23 06:25 Labs: Laboratory Results - last 24 hr 10/14/23 05:43 WBC 15.5 H RBC 3.42 L Hgb 10.6 L Hct 31.3 L MCV 91.6 MCH 31.0 MCHC 33.9 RDW 13.7 Plt Count 243 PFSH Medical History Stage 3b chronic kidney disease (CKD) History of cardioversion Persistent atrial fibrillation Systolic heart failure CAD (coronary artery disease) Emphysema of lung Surgical History No pertinent past surgical history Social History household members: none Smoking Status: Former smoker substance use type: does not use Assessment & Plan Assessment & Plan narrative: 1. L trimalleolar ankle fracture, present on admission and active. - ORIF performed 10/13. No complications. - with 5 mg prednisone should not require stress dose steroids, though monitor cautiously post operatively. 2. R groin pain, present on admission and chronic. - CT ordered with constipation, but no inguinal hernia or lymphadenopathy. Etiology likely musculoskeletal. 3. Chronic systolic heart failure, present on admission and stable. - no obvious signs of acute failure, but with presenting vague symptoms will recheck an echo. Last EF 55%. - continue home diuretic prn. 4. CKD stage III, present on admission and stable. - creatinine appears to be at usual baseline, 0.7 today. 5. Persistent afib on chronic anticoagulation, present on admission and stable. - continue home beta sneha metoprolol succ 100 mg daily - held apixaban for now prior to surgery. With improvement in creatinine she can increase to 5 mg BID after surgery. - Will resume Apixiban 10/14 6. Chronic COPD, present on admission and stable. - continue duo-nebs and standing albuterol with prn albuterol nebs to replace home advair. - continue chronic 5 mg prednisone daily. 7. HTN, present on admission and stable. - continue home metoprolol, losartan and prn lasix as noted above. Code: DNR, she declines surrogate decision maker despite discussion at this time. Dispo: Admitted inpatient, SNF likely depending on therapy evaluations today. Social Hx: She lives alone and [place]. DVT: Resume Apixiban this AM.
--- NOTE | 2023-10-14 09:45 | PT.IIE ---
Current Diagnoses Displaced trimalleolar fracture of right lower leg, initial encounter for closed fracture (10/10/23) Displaced trimalleolar fracture of left lower leg, initial encounter for closed fracture (10/10/23) Other fracture of right lower leg, initial encounter for closed fracture (10/10/23) Surgery Performed Operation Date: 10/13/23 08:00 Actual Procedures p ORIF Ankle Fracture(Left) - Raciel Rossi MD Surgical History (Last Reviewed 10/13/23 @ 09:00 by Fernando Barnes MD) No pertinent past surgical history Medical History (Last Reviewed 10/13/23 @ 09:00 by Fernando Barnes MD) CAD (coronary artery disease) Emphysema of lung History of cardioversion Persistent atrial fibrillation Stage 3b chronic kidney disease (CKD) Systolic heart failure Physical Therapy Inpatient Evaluation/Re-Eval M1 PT/OT-IP Prior Functional Status Start: 10/14/23 08:01 Freq: NEEDED Status: Active Protocol: Document 10/14/23 09:45 AW (Rec: 10/14/23 10:57 AW [id number]) Medical Review Prior Functional Status Medical History Reviewed Yes Communication WNL. Pt is an effective verbal communicator. Mobility and Gait Independent, no AD at home. Pt uses walking sticks or a 4WW immediately outside here home where there is gravel and rock on a hill. Activities of Daily Living and IADL's Independent with basic ADL's. Also manages her own medications and finances. Pt does not drive. Her neighbor, Tristan, drives her to appointments and shopping. Social History Household Members none Living Arrangements House Number of Floors (Floors) Two Floors Number of Stairs To Enter/Railing? Stays on the mid level java developer but must climb 8 steps to enter. She has a left sided rail on the first 6 steps. For the last two steps, she uses a quad cane anchored in a heavy garden pot for support. Home Environment Standard Height Toilet Home Equipment Front Wheel Walker,Four Wheel Walker,Manual Wheelchair Employment Status Retired M2 PT-IP Current Condition Start: 10/14/23 08:01 Freq: NEEDED Status: Active Protocol: Document 10/14/23 09:45 AW (Rec: 10/14/23 11:03 AW [id number]) Physical Therapy Current Condition Current Condition Evaluation Date 10/14/23 Treatment Diagnosis L trimalleolar fx s/p ORIF; difficulty in walking Onset Date 10/10/23 M3 PT-IP Subjective Start: 10/14/23 08:01 Freq: NEEDED Status: Active Protocol: Document 10/14/23 09:45 AW (Rec: 10/14/23 11:03 AW [id number]) Subjective Physical Therapy Visit Type Type Initial Evaluation Visit Start Time 09:09 Visit Stop Time 09:45 Notes 36 Physical Therapy Visit Comments Patient Comments Pt is willing to participate with PT Patient Goals Pt understands she is likely to require subacute rehab Therapy Pain Assessment Pain When Pain Assessed During Mobility Pain Present Pain Present Pain Reported Location left ankle Scale Used not quantified M4 PT-IP Mobility and Gait Start: 10/14/23 08:01 Freq: NEEDED Status: Active Protocol: Document 10/14/23 09:45 AW (Rec: 10/14/23 11:03 AW [id number]) PT-Bed Mobility Assessment Supine to Sit Supine to Sit Minimal Assistance,Head of Bed Elevated,Bedrails Sit to Supine Sit to Supine Minimal Assistance Scooting Scooting to Edge of Bed Standby Assistance Scooting Up and Down in Bed Minimal Assistance PT-Transfer Assessment Sit to and From Stand Sit to and from Stand Maximum Assistance,1 Person Assistance,Use of Upper Extremities Equipment Transfer Assistive Device Gait Belt,Front Wheeled Walker Orthotic/Prosthetic Devices or Brace: Yes Transfers Transfer Destination Bed,Chair Transfer Technique Stand Pivot Comments Mobility Comments Pt is found resting in bed. PT educates pt on her weightbearing status. PT demonstrates NWB LLE transfers using FWW and pt is willing to give it a try. With HOB elevated and heavy use of rails, pt transitions to sitting EOB as PT provides min assist to move her operative leg. PT helps pt don her own shoe on right foot to assist with NWB LLE. Pt sits with good balance. Max A to get into standing with FWW as PT cues hand placement and COG over SLIM for improved stability and efficiency. Pt tolerates standing only 10 seconds before fatigue sets in but is willing to try again after a brief rest. She moves into standing with max A again with good ability to keep her LLE elevated to maintain NWB. She does not feel confident enough to attempt a transfer. She returns to supine with min A for support of her LLE. Returned later in the AM for transfer training with OT present. Pt able to transfer bed > chair using FWW with mod A x 2. Pt then stood to FWW from the chair with mod A x 2 before settling back into the chair where she agreed to remain. Gait Assessment Comments Gait Comments Unable at this time. Stair Climbing Assessment Comments Stair Climbing Comments Unable at this time. PT-Balance Assessment Sitting Balance and Reactions Static Sitting Balance Ability Good Dynamic Sitting Balance Ability Good Standing Balance and Reactions Static Standing Balance Ability Poor Dynamic Standing Balance Ability Poor Device Used FWW M5 PT-IP Objective Assessments Start: 10/14/23 08:01 Freq: NEEDED Status: Active Protocol: Document 10/14/23 09:45 AW (Rec: 10/14/23 11:20 AW [id number]) Orientation Orientation/Cognition Level of Alertness Alert Orientation Name,Age,Birthday,Month,Date, Year,Day of Week,Place, Situation Language Function Ability No Deficits Noted Safety Awareness Understands Safety Issues Memory Description No Deficits Noted Gross Range of Motion Upper Extremity ROM Assessment Within Functional Limits Lower Extremity ROM Assessment Left Impaired Strength Upper Extremity Strength Shoulder 4/5 grossly Elbow 4/5 ext 4+/5 flex Lower Extremity Strength Assessment Bilaterally Impaired Hip R 4-/5 L 3+/5 Knee R 4/5 ext 4-/5 flex Ankle R 3-/5 Comments Strength Comments 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 She has never used a brace for foot drop but does have significant weakness in her right ankle (left not tested due to fracture). Sensation Assessment Sensation Gross Sensation Right LE Impaired,Left LE Impaired Light Touch Impaired M6 PT-IP Treatment Start: 10/14/23 08:01 Freq: NEEDED Status: Active Protocol: Document 10/14/23 09:45 AW (Rec: 10/14/23 11:20 AW [id number]) Physical Therapy Treatment Exercises Exercises Ankle Pumps,Gluteal Sets,Quad Sets Other Treatments Other Treatment Performed Ther ex primarily RLE M7 PT-IP Assessment and Plan Start: 10/14/23 08:01 Freq: NEEDED Status: Active Protocol: Document 10/14/23 09:45 AW (Rec: 10/14/23 11:29 AW [id number]) PT Summary Assessment and Plan Potential Rehabilitation Potential Good Status of Condition at Evaluation Evolving Summary Impairments Pain,ROM,Strength,Balance,Bed Mobility,Transfers,Gait, Activity Tolerance Assessment Summary Agata Enriquez is an 83 yo woman admitted after a fall with resultant left trimalleolar ankle fracture. She is POD1 s/ p ORIF today and is to maintain NWB LLE per ortho. PMH icnludes COPD, atrial fibrilliation, and CKD3. Pt states she has Charcot Amelia Tooth and both of her feet are affected. She has special shoes to accommodate her foot shape but has never used any AFO for functional foot drop ( which may well have contributed to her fall). PLOF : Pt lives alone and is relatively independent. She uses no AD in her home and walking sticks vs 4WW outside her home. She has a supportive neighbor who helps with driving, errands, and shopping . CLOF: Pt is requiring mod to max assist x 1-2 people for transfers using FWW. She is able to maintain NWB LLE for transfers. She is not able to progress to functional gait at this time due to strength impairments both upper and lower extremity. PT recommends SNF for daily rehab activities in a setting that can support her care needs. Will continue to progress her mobility as tolerated while she is hospitalized. Goals Bed Mobility Goal Standby Assistance Transfer Goal Contact Guard Assistance,Front Wheeled Walker Gait Goal Contact Guard Assistance,Front Wheel Walker Gait Distance 10 Days to Meet Goals 10 Frequency of Treatment Frequency Of Treatment Once a Day Treatment Plan Physical Therapy Treatment Plan Bed Mobility Training,Transfer Training,Gait Training, Therapeutic Exercise,Balance Retraining,Post Op Education, Discharge Planning,Hot or Cold Pack,Neuromuscular Re-ed Weight Bearing Status Weight Bearing Status Non-Weight Bearing Allowed Weight Bearing Amount (enter % NWB LLE or #) (%) Recommendations To Nursing Amount of Assist Needed 2 Person Assist,Mechanical Lift Discharge Recommendations PT Discharge Recommendations SNF Rehab Transportation Needs at Discharge Wheelchair/Cabulance
--- NOTE | 2023-10-14 10:40 | CM.DPC ---
DCP SNF Planning: Per MD and Ortho MD, pt tolerated surgery well and to work with PT/OT today for likely plan of SNF tomorrow 10/15/23. Per PT, recommending SNF at d/c. OT pending. SW updated [facility] and [facility] and both confirm they cannot accept today but could accept pt tomorrow Tues. SW met bedside with pt and she acknowledges that she is disappointed not to be discharging home but in agreement that SNF needed before safely getting up the driveway and stairs to her home. Preference remains [facility] for location and aware discharge will be tomorrow if she remains stable. SW updated [facility] and they likely can transport around [id number] and aware that they will need leg lift for the w/c due to pt's ankle. SW updated [facility] and they are aware plan is d/c to [facility] but if any issues arise, they can accept tomorrow Tues as well. ANSLEY updated MD and RN. Plan: SW to follow for plan of d/c to [facility] tomorrow 10/15/23 likely around 1100 via facility van with leg lift w/c. CHACHO Jiang
--- NOTE | 2023-10-14 11:27 | OT.IP.EVAL ---
Current Diagnoses Displaced trimalleolar fracture of right lower leg, initial encounter for closed fracture (10/10/23) Displaced trimalleolar fracture of left lower leg, initial encounter for closed fracture (10/10/23) Other fracture of right lower leg, initial encounter for closed fracture (10/10/23) Surgery Performed Operation Date: 10/13/23 08:00 Actual Procedures p ORIF Ankle Fracture(Left) - Raciel Rossi MD Past Medical History (Last Reviewed 10/13/23 @ 09:00 by Fernando Barnes MD) CAD (coronary artery disease) Emphysema of lung History of cardioversion Persistent atrial fibrillation Stage 3b chronic kidney disease (CKD) Systolic heart failure Surgical History (Last Reviewed 10/13/23 @ 09:00 by Fernando Barnes MD) No pertinent past surgical history Occupational Therapy Inpatient Evaluation/Re-Eval M1 PT/OT-IP Prior Functional Status Start: 10/14/23 08:01 Freq: NEEDED Status: Active Protocol: Document 10/14/23 12:35 CGR (Rec: 10/14/23 12:49 CGR [id number]) Medical Review Prior Functional Status Medical History Reviewed Yes Communication WNL. Pt is an effective verbal communicator. Mobility and Gait Independent, no AD at home. Pt uses walking sticks or a 4WW immediately outside here home where there is gravel and rock on a hill. Activities of Daily Living and IADL's Independent with basic ADL's. Also manages her own medications and finances. Pt does not drive. Her neighbor, Tristan, drives her to appointments and shopping. Social History Household Members none Living Arrangements House Number of Floors (Floors) Two Floors Number of Stairs To Enter/Railing? Stays on the data entry technician but must climb 8 steps to enter. She has a left sided rail on the first 6 steps. For the last two steps, she uses a quad cane anchored in a heavy garden pot for support. Home Environment Standard Height Toilet Home Equipment Front Wheel Walker,Four Wheel Walker,Manual Wheelchair, Cell Technician Employment Status Retired M2 OT-IP Current Condition Start: 10/14/23 12:35 Freq: Status: Active Protocol: Document 10/14/23 12:35 CGR (Rec: 10/14/23 12:49 CGR [id number]) Occupational Therapy Current Condition Current Condition Evaluation Date 10/14/23 Treatment Diagnosis Fall with L ankle fx, ORIF Diagnosis Onset Date 10/10/23 Weight Bearing Status Weight Bearing Status Non-Weight Bearing Allowed Weight Bearing Amount (enter % LLE or #) (%) M3 OT- IP Subjective and Pain Start: 10/14/23 12:35 Freq: Status: Active Protocol: Document 10/14/23 12:35 CGR (Rec: 10/14/23 12:49 CGR [id number]) OT- Subjective Occupational Therapy Visit Type Type Initial Evaluation Visit Start Time 10:44 Visit Stop Time 11:27 Notes Partial co-treat with P.T. OT Pain Assessment Pain When Pain Assessed At Rest Pain Present Pain Present Pain Reported Location left ankle Intensity 2 Scale Used Numeric (0 - 10) Management Techniques Distraction,Modification of Treatment,Re-positioning, Timing of Activity with Medications M4 OT- IP ADL's Start: 10/14/23 12:35 Freq: Status: Active Protocol: Document 10/14/23 12:35 CGR (Rec: 10/14/23 12:49 CGR [id number]) OT [id number] Comments OT Self-Feeding Comments not meal time OT ADL-Grooming Comments OT Grooming Comments pt declined, already performed OT ADL-Oral Care Comments Oral Care Comments pt declined, already performed OT ADL-Dressing General Eval Lower Body Dressing Ability Minimal Assistance Areas Needing Assistance Shoes Comments OT Dressing Comments shoe to the RLE OT ADL-Toileting General Evaluation Toileting Ability Total Assistance Comments OT Toileting Comments Pt with frederick OT ADL-Bathing Comments OT Bathing Comments not performed M5 OT- IP IADL's Start: 10/14/23 12:35 Freq: Status: Active Protocol: Document 10/14/23 12:35 CGR (Rec: 10/14/23 12:49 CGR [id number]) OT-Instrumental Activities of Daily Living Deficits IADL Deficits Identified No Deficits Home Safety Awareness Awareness of Need for Assistance at Home Good Awareness Ability to Problem Solve Emergency Able to Problem Solve Situations Medication Management Medication Management No Deficits Identified Money Management Money Management No Deficits Identified Meal Preparation Meal Preparation Comments concerns regarding pt's abiltiy to perform at this time Air Hoist Operator Air Hoist Operator Comments concerns regarding pt's abiltiy to perform at this time Driving Driving Comments Pt does not drive M6 OT- IP Functional Cognition Start: 10/14/23 12:35 Freq: Status: Active Protocol: Document 10/14/23 12:35 CGR (Rec: 10/14/23 12:49 CGR [id number]) Cognitive Factors Limiting Selfcare Function Cognitive Ability Level of Alertness Alert Patient Orientation Name,Age,Birthday,Month,Date, Year,Day of Week,Place, Situation Attention Span Ability Capable of Focused Attention, Capable of Sustained Attention Ability to Follow Commands Able to Follow Multi-Step Commands OT- Vision and Hearing OT- Hearing Assessment OT- Hearing Assessment Hearing Impaired OT- Vision Assessment Visual Acuity Glasses All The Time Visual Attentiveness WFL Occular Pursuits WFL Visual Convergence WFL Vision Assessment Comments Pt wears bifocals M7 OT- IP Mobility and Balance Start: 10/14/23 12:35 Freq: Status: Active Protocol: Document 10/14/23 12:35 CGR (Rec: 10/14/23 12:49 CGR [id number]) OT- Bed Mobility Assessment Supine to Sit Supine to Sit Assist Standby Assistance,Head of Bed Elevated Scooting Scooting to Edge of Bed Standby Assistance,Head of Bed Elevated OT-Transfer Assessment Sit to and From Stand Sit to and from Stand Moderate Assistance,1 Person Assistance Transfers Transfer Ability Moderate Assistance,2 Person Assistance Technique Transfer Destination Bed,Chair Transfer Technique Stand Pivot Devices Transfer Assistive Devices Gait Belt,Front Wheeled Walker Comments Mobility Comments Pt was able to stand from the bed and transfer to the chair. After a rest break, pt was able to stand again from the chair all while maintaining her NWB to the LLE. OT- Gait Assessment Comments Gait Ability Comments not performed OT- Balance Assessment Sitting Balance and Reactions Static Sitting Balance Ability Good Dynamic Sitting Balance Ability Good M8 OT- IP Objective Assessments Start: 10/14/23 12:35 Freq: Status: Active Protocol: Document 10/14/23 12:35 CGR (Rec: 10/14/23 12:49 CGR [id number]) OT Gross Range of Motion Upper Extremity Range of Motion Assessment Within Functional Limits ROM Impairments except L pointer finger from previous injury in 1971 OT Strength Upper Extremity Strength Assessment Within Functional Limits Comments Strength Comments 4+/5 OT- Coordination Assessment Upper Extremity Finger to Nose Test Within Functional Limits Finger Tapping Test Within Functional Limits OT-Muscle Tone Assessment Muscle Tone WNL Yes OT Sensation Assessment Edema Edema Absent M9 OT- IP Assessment and Plan Start: 10/14/23 12:35 Freq: Status: Active Protocol: Document 10/14/23 12:35 CGR (Rec: 10/14/23 12:49 CGR [id number]) OT Summary Assessment and Plan Potential Rehabilitation Potential Good Analytic Complexity at Evaluation Moderate Summary OT Impairments Pain,Balance,Functional Mobility,Grooming,Dressing, Toileting,Bathing,Toilet Transfers,Shower Transfers, Activity Tolerance Progress Towards Goals Progressing Toward Goals Assessment Summary Pt presents as a moderate complexity evaluation s/p admit for fall with L ankle fx . Pt underwent ORIF of the L ankle 10/13/23 and is now NWB to the [facility]. Pt will benefit from SNF upon discharge as she has 8 stairs to enter her home and will have significant difficulty performing ADLs. Goals Grooming Goal Independent Dressing Goal Independent Toileting Goal Independent Bathing Goal Independent Toilet Transfer Goal Independent Shower Transfer Goal Independent Days to Meet Goals 30 Frequency of Treatment Frequency Of Treatment Once a Day Treatment Plan OT Treatment Plan ADL Training,Functional Mobility,Patient/Family Education,Discharge Planning Other Treatment Recommendations and Next Shower if possible in shower w Treatment Focus /c Discharge Recommendations OT Discharge Recommendations SNF Rehab Transportation Needs at Discharge Wheelchair/Cabulance
[2023-10-14] MEDS: ATORVASTATIN 20 MG TABLET PO (20:44)
[2023-10-14] MEDS: APIXABAN 5 MG TABLET PO (20:44)
[2023-10-14] MEDS: MELATONIN 3 MG TABLET 6 MG PO (22:37)
[2023-10-15 00:33] VITALS: BP 115/46; PULSE 77; RESP 16; TEMP 36.2; O2SAT 93
[2023-10-15 04:55] VITALS: BP 118/46; PULSE 75; RESP 20; TEMP 36.3; O2SAT 92
[2023-10-15 05:08] LABS: Add Manual Diff / Slide Review NO; Basophils Absolute Auto 0 /uL (0-100); Basophils Percent Auto 0.1 % (0-2); Eosinophils Absolute Auto 0 /uL (0-450); Hematocrit 31.9 % (36-46); Hemoglobin 10.7 g/dL (12.0-16.0); Lymphocytes Absolute Auto 1300 /uL (1100-4500); Lymphocytes Percent Auto 7.5 % (25-40); Mean Corpuscular HGB Conc 33.5 % (30-36); Mean Corpuscular Hemoglobin 30.4 PG (26-34); Mean Corpuscular Volume 90.8 fL (80-100); Monocytes Absolute Auto 1300 /uL (0-900); Monocytes Percent Auto 7.1 % (3-14); Neutrophils Absolute Auto 15200 /uL (1500-7000); Neutrophils Percent Auto 85.3 % (50-75); Platelet Count 284 X10^3/uL (150-400); Red Blood Cell Count 3.51 X10^6/uL (4.0-5.2); White Blood Cell Count 17.9 X10^3/uL (4.5-11.0)
[2023-10-15 05:28] LABS: BUN Creatinine Ratio 36.7 (6-22); Blood Urea Nitrogen 29 mg/dL (7-17); Calcium 8.7 mg/dL (8.4-10.2); Carbon Dioxide 26 mmol/L (22-32); Chloride 105 mmol/L (98-107); Estimated Glomerular Filt Rate > 60 mL/min (>60); Glucose 136 mg/dL (80-110); HEMOLYSIS 15 (0-50); Potassium 3.6 mmol/L (3.4-5.1); Sodium 138 mmol/L (137-145)
[2023-10-15] MEDS: BUDESONIDE 0.5 MG/2 ML NEB INH (07:32)
[2023-10-15] MEDS: ALBUTEROL/IPRATROPIUM 3 ML AMPUL INH (07:32)
[2023-10-15 07:40] VITALS: O2SAT 96
[2023-10-15 08:00] VITALS: BP 116/43; PULSE 68; RESP 16; TEMP 36.2; O2SAT 95
[2023-10-15 09:19] VITALS: O2SAT 95
--- NOTE | 2023-10-15 09:24 | PM.DS.1 ---
History of Present Illness History of Present Illness Chief complaint: l ankle injury Narrative: Patient seen in evaluation for left ankle injury. She has a past medical history significant for PMH of emphysema, persistent afib, systolic HF (most recent EF around 55% on TTE 2022), CKD stage III. Due to her blood thinners she is remaining inpatient today. [place] She sustained the injury after falling from a curb. She had a dislocation which was reduced in the emergency department yesterday. She has been complaining of recent fatigue and shortness of breath. She has a splint on. Her symptoms have been present since the time of injury. They are partially alleviated by rest and aggravated by any sort of movement. It is a sharp pain which is localized to the ankle Discharge Providers Provider Date of admission: 10/10/23 14:49 Discharge Date: 10/15/23 Primary care physician: PCP, [place], [place] Consults: 10/10/23 19:33 Consult to Orthopedic Surgery Routine Comment: Consulting Provider: Raciel Rossi Reason for consultation: L trimalleolar ankle fx Has provider been notified: Yes 10/13/23 10:01 Consult to Physical Therapy Evaluate & Treat Comment: Physician Instructions: Evaluate and Treat 10/13/23 12:56 Consult to Inpatient Wound Care Nurse Routine Comment: Reason for consultation: decubitus ulcers 10/13/23 13:10 Consult to Discharge Planning Routine Comment: Consult to Physical Therapy Evaluate & Treat Comment: Physician Instructions: Evaluate and Treat 10/14/23 08:18 Consult to Occupational Therapy Evaluate & Treat Comment: Physician Instructions: Evaluate and treat Discharge provider: Fernando Barnes MD Summary Hospital Course Discharge Diagnosis: 1. L trimalleolar ankle fracture, present on admission and active. - ORIF performed 10/13. No complications. - with 5 mg prednisone should not require stress dose steroids, though monitor cautiously post operatively. 2. R groin pain, present on admission and chronic. - CT ordered with constipation, but no inguinal hernia or lymphadenopathy. Etiology likely musculoskeletal. 3. Chronic systolic heart failure, present on admission and stable. - no obvious signs of acute failure, but with presenting vague symptoms will recheck an echo. Last EF 55%. Takes lasix on an as needed basis. 4. CKD stage III, present on admission and stable. - creatinine appears to be at usual baseline, 0.7 today. 5. Persistent afib on chronic anticoagulation, present on admission and stable. - continue home beta sneha metoprolol succ 100 mg daily - held apixaban for now prior to surgery. With improvement in creatinine she can increase to 5 mg BID after surgery. - Will resume Apixiban 10/14 6. Chronic COPD, present on admission and stable. - continue duo-nebs and standing albuterol with prn albuterol nebs to replace home advair. - continue chronic 5 mg prednisone daily. 7. HTN, present on admission and stable. - continue home metoprolol, losartan and prn lasix as noted above. Hospital Course: The patient presented with a ankle fracture following a fall. She was in the area visiting from [place] for a medical appointment when this happened. She was admitted and underwent pain control measures in her apixaban was held. She underwent operative repair and internal fixation on October 13. The surgery was uncomplicated and her anticoagulation was restarted postoperatively at 12:00 p.m. after the procedure. Her apixaban dose was increased from 2.5-5 b.i.d. based on renal function. She does take 5 mg of prednisone on a chronic daily basis. This was continued without dose change. Fong catheter was removed on the day of discharge. She was progressing well. She does live alone and Saturday and has approximately 10 steps to enter her dwelling. Status at Discharge Cognitive/behavioral status at discharge: oriented Functional status at discharge: wheelchair bound Overall status at discharge: patient is progressing back to baseline Time Spent with Patient Time spent: Greater than 30 minutes Exam Vital Signs (past 8 hours): - 10/15/23 04:55 10/15/23 04:55 10/15/23 07:40 Temperature 97.4 F L Pulse Rate 75 Respiratory Rate 20 Blood Pressure 118/46 L Pulse Oximetry 92 92 96 Oxygen Delivery Method Room Air Room Air Oxygen Flow Rate 0 10/15/23 08:00 Temperature 97.2 F L Pulse Rate 68 Respiratory Rate 16 Blood Pressure 116/43 L Pulse Oximetry 95 Oxygen Delivery Method Oxygen Flow Rate 0 Fraction of Inspired Oxygen 21 SaO2/FiO2 Ratio 438 Oxygen Delivery Method Room Air Oxygen Flow Rate 0 Narrative Exam Narrative: NAD, pleasant affect and normal speech. Lungs are clear with normal effort. Heart is regular. Abdomen is nondistended. Left ankle is wrapped. She is good cap refill in her toes. Left elbow skin tear is being re-dressed and is free of evidence of infection. Objective Imaging CT scan - abdomen: Radiologist's impression: 1. No obstructing stones or hydronephrosis. 2. Cholelithiasis. 3. No inguinal hernias. 4. Numerous calcified uterine fibroids. 5. Diverticulosis without diverticulitis. 6. A large amount of stool in colon. 7. Small pericardial effusion. Ankle Xray: Radiologist's impression: Trimalleolar fracture, with dislocation. Intraoperative fluoroscopic guidance was used for bimalleolar fracture fixation. Hardware components are in expected positions. CT scan - head: Radiologist's impression: No acute intracranial pathology. C-Spine CT: Radiologist's impression: Severely suboptimal evaluation due to motion artifact. No significantly displaced fracture. Ankle CT: Radiologist's impression: IMPRESSION: Extensively comminuted trimalleolar fractures, all displaced, with posterior talar dislocation and involvement of the syndesmosis. Labs 10/15/23 04:45 10/15/23 04:45 Labs: Laboratory Results - last 24 hr 10/15/23 04:45 WBC 17.9 H RBC 3.51 L Hgb 10.7 L Hct 31.9 L MCV 90.8 MCH 30.4 MCHC 33.5 RDW 14.0 Plt Count 284 Neut % (Auto) 85.3 H D Lymph % (Auto) 7.5 L [place] % (Auto) 7.1 Eos % (Auto) 0.0 L Baso % (Auto) 0.1 Neut # (Auto) 29555 H Lymph # (Auto) 1300 Bound[place] # (Auto) 1300 H Eos # (Auto) 0 Baso # (Auto) 0 Sodium 138 Potassium 3.6 Chloride 105 Carbon Dioxide 26 BUN 29 H Creatinine 0.79 Estimated GFR > 60 BUN/Creatinine Ratio 36.7 H Glucose 136 H Calcium 8.7 PFSH Medical History Stage 3b chronic kidney disease (CKD) History of cardioversion Persistent atrial fibrillation Systolic heart failure CAD (coronary artery disease) Emphysema of lung Surgical History No pertinent past surgical history Social History household members: none Smoking Status: Former smoker substance use type: does not use Discharge Plan Discharge Plan Patient Disposition: SNF Transfer to: [facility] Under care of provider: Dr. Love Provider Discharge Comment: Stable for discharge. Discharge orders & Medications Prescriptions: New prednisone 5 mg Tablet 5 mg PO DAILY Qty: 30 0RF Eliquis 5 mg Tablet 5 mg PO BID Qty: 60 2RF Continued montelukast 10 mg Tablet 10 mg PO DAILY metoprolol succinate 100 mg Tablet Extended Release 24 Hr 100 mg PO DAILY atorvastatin 20 mg Tablet 20 mg PO BEDTIME albuterol sulfate 2.5 mg /3 mL (0.083 %) Solution For Nebulization 2.5 mg inhalation QD-QID PRN (Reason: sob) losartan 50 mg PO DAILY fluticasone propion-salmeterol [Advair HFA] 230-21 mcg/actuation Hfa Aerosol Inhaler 2 puff INHALATION BID furosemide 20 mg Tablet 20 mg PO DAILY Discontinued Eliquis 2.5 mg Tablet 2.5 mg PO BID Follow up/Referrals: Raciel Rossi MD [Physician] - 2 Weeks (Follow up w/ PA or Dr Rossi in office in 2 weeks for wound check, repeat imaging, and placement in tall walking boot.) Discharge Health Status Multidrug resistant organism: No MDRO Diet/Activity/Treatments Diet: Regular Liquid consistency: Normal/Thin Food texture: Regular Activity: Nonweightbearing to LLE. Skin/Wound/Dressing Care Report to your healthcare provider any signs of infection, such as:: increased pain, unusual drainage and unusual redness Dressing: Keep splint dry; do not remove until follow up in office. HEDII wrap can be loosened and cast padding torn if splint feels too tight. Batteries on BRENDA dressing will in 5-7 days, at which point battery pack can be disposed of. Dressing to remain in place until follow up w/ ortho. Visit Report/Discharge Packet Instructions: DI for Open Reduction Internal Fixation Surgery Stand Alone Forms: Patient Portal/API
[2023-10-15] MEDS: MONTELUKAST 10 MG TABLET PO (09:51)
[2023-10-15] MEDS: polyethylene glycoL 3350 17 GM POWD.PACK PO (09:51)
[2023-10-15] MEDS: DOCUSATE 100 MG CAPSULE PO (09:51)
[2023-10-15] MEDS: APIXABAN 5 MG TABLET PO (09:51)
[2023-10-15] MEDS: predniSONE 5 MG TABLET PO (09:51)
--- NOTE | 2023-10-15 10:15 | CM.DPC ---
DCP Cont. Reviewed EMR and team rounds for status updates. Plan is for pt to d/c to [facility] today at 11:00am, facility will transport. Clinicals and PASSAR faxed, scrips are in red folder. No further needs indicated for DCP at this time.
== END 2023-10-15 11:09 | DRG 493 ==
LOC: ED 14:47 → AC 15:03
PROVIDERS: Hospitalist; Orthopaedic Surgery Adult Reconstructive Orthopaedic Surgery; Admitting Provider Internal Medicine; Emergency Provider Emergency Medicine; Referring Provider Emergency Medicine; Visit Provider Internal Medicine
PROC: 0QSH04Z Reposition Left Tibia with Internal Fixation Device, Open Approach (ICD-10-PCS; principal; 2023-10-13 08:00)
DX: S82.852A Displaced trimalleolar fracture of left lower leg, initial encounter for closed fracture (principal); I13.0 Hypertensive heart and chronic kidney disease with heart failure and stage 1 through stage 4 chronic kidney disease, or unspecified chronic kidney disease; I48.19 Other persistent atrial fibrillation; I50.22 Chronic systolic (congestive) heart failure; N18.30 Chronic kidney disease, stage 3 unspecified; R10.31 Right lower quadrant pain; J44.9 Chronic obstructive pulmonary disease, unspecified; I25.10 Atherosclerotic heart disease of native coronary artery without angina pectoris; W18.30XA Fall on same level, unspecified, initial encounter; Z79.01 Long term (current) use of anticoagulants; Z66 Do not resuscitate; Z79.52 Long term (current) use of systemic steroids; Z87.891 Personal history of nicotine dependence
CPT/HCPCS: 27818; 36415; 64450; 70450; 72125; 73600; 73610; 73700; 74176; 76000; 80048; 80053; 83735; 83880; 85025; 85027; 93005; 94640; 94760; 94762; 96374; 97162; 97166; 97530; 99152; 99285; C1776; C8929; J0136; J0330; J0690; J1100; J1644; J2270; J2405; J2704; J3010; Q9957

== ENCOUNTER → 2023-12-04 16:35 | Outpatient (ROUT) | payer MEDICARE, MEDICAID, SELFPAY ==
[2023-10-10 15:13] VITALS: BMI 33.3
[2023-12-04 16:53] LABS: Alanine Aminotransferase 25 IU/L (<35); Albumin 3.5 g/dL (3.5-5.0); Albumin Globulin Ratio 1.2 (1.0-2.8); Alkaline Phosphatase 76 U/L (38-126); Aspartate Aminotransferase 23 IU/L (14-36); BUN Creatinine Ratio 20.8 (6-22); Bilirubin Total 0.7 mg/dL (0.2-1.3); Blood Urea Nitrogen 21 mg/dL (7-17); Calcium 9.2 mg/dL (8.4-10.2); Carbon Dioxide 27 mmol/L (22-32); Chloride 106 mmol/L (98-107); Estimated Glomerular Filt Rate 55 mL/min (>60); Globulin 2.9 g/dL (1.7-4.1); Glucose 122 mg/dL (80-110); HEMOLYSIS < 15 (0-50); Potassium 4.4 mmol/L (3.4-5.1); Sodium 140 mmol/L (137-145); Total Protein 6.4 g/dL (6.3-8.2)
== END ==
PROVIDERS: Visit Provider Nurse Practitioner
DX: Z13.9 Encounter for screening, unspecified (principal)
CPT/HCPCS: 80053

== ENCOUNTER 2023-12-07 15:27 | Emergency (ER) | payer MEDICARE, SELFPAY ==
[2023-10-10 15:13] VITALS: BMI 33.3
[2023-12-07] VITALS (29 sets, daily range): BP systolic 92–126; BP diastolic 51–70; PULSE 73–156; RESP 18–35; TEMP 36.3; O2SAT 82–98; BMI 33.6
--- NOTE | 2023-12-07 15:31 | DI.RAD.S_ITS ---
PROCEDURE: XR CHEST 1V INDICATIONS: dyspnea, afib rvr TECHNIQUE: One view of the chest was acquired. COMPARISON: None. FINDINGS: Surgical changes and devices: None. Lungs and pleura: Blunting of the bilateral costophrenic angles. Right greater than left small effusion. Mild interstitial prominence. No pneumothorax. Mediastinum: Mediastinal contours appear normal. Heart size is normal. Bones and chest wall: No suspicious bony lesions. Overlying soft tissues appear unremarkable. IMPRESSION: Right greater than left small pleural effusion. Interstitial prominence likely reflects atelectasis and/or scarring. Dictated by: Ryne Hay M.D. on 12/07/2023 at 14:50 Approved by: Ryne Hay M.D. on 12/07/2023 at 14:51
--- NOTE | 2023-12-07 15:39 | ED.SOB ---
HPI - SOB/Dyspnea General Chief Complaint: Shortness of Breath/Dyspnea Stated Complaint: SOB Time Seen by Provider: 12/07/23 15:31 Source: patient and EMS Mode of arrival: EMS Limitations: no limitations History of Present Illness HPI Narrative: 83-year-old female with history of atrial fibrillation on Eliquis, congestive heart failure, asthma [facility] by EMS from [facility] for shortness of breath and atrial fibrillation. Patient states she has been dealing with fluid retention for the last 3-4 days. She states that she goes in and out of atrial fibrillation ?whenever I get annoyed? and thinks that she has been in and out of AFib for at least the last week. EMS reports that patient was on supplemental nasal cannula and receiving a DuoNeb when they arrived. They kept her on nasal cannula and transported her for further evaluation. On arrival patient was in atrial fibrillation with rapid ventricular response. She states she has been compliant with her Eliquis. Related Data Home Medications Medication Instructions Recorded Confirmed albuterol sulfate 2.5 mg/3 mL 2.5 mg inhalation QD-QID PRN sob 10/11/23 10/11/23 (0.083 %) solution for nebulization atorvastatin 20 mg tablet 20 mg PO BEDTIME 10/11/23 10/11/23 fluticasone propionate 230 2 puff inhalation BID 10/11/23 10/11/23 mcg-salmeterol 21 mcg/actuation HFA inhaler (Advair HFA) furosemide 20 mg tablet 20 mg PO DAILY 10/11/23 10/11/23 losartan 50 mg PO DAILY hypertension 10/11/23 10/11/23 metoprolol succinate 100 mg 100 mg PO DAILY 10/11/23 10/11/23 tablet,extended release 24 hr montelukast 10 mg tablet 10 mg PO DAILY 10/11/23 10/11/23 Previous Rx's Medication Instructions Recorded apixaban 5 mg tablet 5 mg PO BID #60 tabs 10/15/23 prednisone 5 mg tablet 5 mg PO DAILY #30 tabs 10/15/23 Allergies Allergy/AdvReac Type Severity Reaction Status Date / Time Penicillins Allergy Verified 10/10/23 10:36 Review of Systems Review of Systems Narrative: Negative except as noted above Patient History Medical History Stage 3b chronic kidney disease (CKD) History of cardioversion Persistent atrial fibrillation Systolic heart failure CAD (coronary artery disease) Emphysema of lung Surgical History No pertinent past surgical history Social History household members: none Smoking Status: Former smoker substance use type: does not use Smoking Status: Former smoker alcohol intake frequency: holidays/special occasions only Substance Use Type: does not use Exam Initial Vital Signs Initial Vital Signs: Vital Signs Temperature 97.4 F L 12/07/23 15:35 Pulse Rate 151 H 12/07/23 15:35 Respiratory Rate 24 12/07/23 15:35 Blood Pressure 116/68 12/07/23 15:35 Pulse Oximetry 93 12/07/23 15:35 Oxygen Delivery Method Room Air 12/07/23 15:35 Const: Awake, alert, frail, debilitated, appears chronically unwell Cardiac: Tachycardia, irregularly irregular RESP: On supplemental nasal cannula, diminished breath sounds, barrel chest GI: Soft, nontender, nondistended, no rebound, no guarding MSK: Trace pitting edema to knees bilaterally Skin: Warm, Dry, intact, no rashes Neuro: AO x3, CN II-XII grossly intact, moves all extremities Procedures Cardioversion Consent Signed: Yes Stability: Stable Number of attempts (shocks): 2 Joules used: 150 and 200 Cardiac rhythm post-cardioversion: sinus Additional Comments: Two attempts made Procedural Sedation Consent signed: Yes Time out performed: Yes ASA Class: III Mallampati Airway Classification: Class I Time of Last PO Intake: 12:00 IV Propofol dose (mg): 70 ED Sedation Level: Moderate (Concious) Patient Tolerated Procedure: Well Complications: Respiratory Depression Requiring Ambulance Assistance Interventions: Airway repositioned and Assist by BVM Course Orders Ordered: Discontinued Medications Albuterol/Ipratropium (Albuterol/Ipratropium 3 Ml Ampul) 3 ml INH NOW ONE Stop: 12/07/23 15:45 Last Admin: 12/07/23 15:49 Dose: 3 ml Documented By: NARENDRA Furosemide (Furosemide 40 Mg/4 Ml Vial) 40 mg IV NOW ONE Stop: 12/07/23 15:41 Last Admin: 12/07/23 15:48 Dose: 40 mg Documented By: MARIN Propofol (Propofol 200 Mg/20 Ml Vial) 100 mg IV NOW ONE Stop: 12/07/23 15:39 Last Admin: 12/07/23 16:01 Dose: 70 mg Documented By: ILANA Vital Signs Vital signs: Vital Signs - 8 hr 12/07/23 15:35 12/07/23 15:36 12/07/23 15:50 Temperature 97.4 F L Pulse Rate 151 H 153 H 156 H Respiratory Rate 24 18 18 Blood Pressure 116/68 Pulse Oximetry 93 94 93 Oxygen Delivery Method Room Air Room Air Room Air Oxygen Flow Rate 0 Fraction of Inspired Oxygen 12/07/23 16:00 12/07/23 16:00 12/07/23 16:03 Temperature Pulse Rate 148 H 138 H Respiratory Rate 23 Blood Pressure 112/70 Pulse Oximetry 96 82 L Oxygen Delivery Method Room Air Room Air Oxygen Flow Rate Fraction of Inspired Oxygen 12/07/23 16:03 12/07/23 16:04 12/07/23 16:05 Temperature Pulse Rate Respiratory Rate Blood Pressure 102/59 L 107/53 L Pulse Oximetry 86 L Oxygen Delivery Method Ambu Bag Oxygen Flow Rate 15 Fraction of Inspired Oxygen 12/07/23 16:05 12/07/23 16:10 12/07/23 16:10 Temperature Pulse Rate 96 H 89 Respiratory Rate 31 H 33 H Blood Pressure 109/55 L Pulse Oximetry 96 95 Oxygen Delivery Method Ambu Bag Nasal Cannula Oxygen Flow Rate 15 2 Fraction of Inspired Oxygen 12/07/23 16:15 12/07/23 16:15 12/07/23 16:18 Temperature Pulse Rate 89 89 Respiratory Rate 35 H 26 H Blood Pressure 92/51 L Pulse Oximetry 96 96 Oxygen Delivery Method Nasal Cannula Nasal Cannula Oxygen Flow Rate 2 2 Fraction of Inspired Oxygen 12/07/23 16:18 12/07/23 16:20 12/07/23 16:20 Temperature Pulse Rate 89 Respiratory Rate 22 Blood Pressure 94/55 L 102/51 L Pulse Oximetry 96 Oxygen Delivery Method Nasal Cannula Oxygen Flow Rate 2 Fraction of Inspired Oxygen 12/07/23 16:25 12/07/23 16:25 12/07/23 16:30 Temperature Pulse Rate 75 78 Respiratory Rate 25 H 19 Blood Pressure 100/60 Pulse Oximetry 96 95 Oxygen Delivery Method Room Air Oxygen Flow Rate Fraction of Inspired Oxygen 12/07/23 16:30 12/07/23 16:33 12/07/23 16:35 Temperature Pulse Rate 88 Respiratory Rate 23 23 Blood Pressure 99/53 L Pulse Oximetry 94 95 Oxygen Delivery Method Room Air Room Air Oxygen Flow Rate Fraction of Inspired Oxygen 12/07/23 16:35 12/07/23 16:40 12/07/23 16:40 Temperature Pulse Rate 73 Respiratory Rate 24 Blood Pressure 92/53 L 95/64 Pulse Oximetry 96 Oxygen Delivery Method Room Air Oxygen Flow Rate Fraction of Inspired Oxygen 12/07/23 16:45 12/07/23 16:45 12/07/23 16:50 Temperature Pulse Rate 92 H 90 Respiratory Rate 31 H 27 H Blood Pressure 103/56 L Pulse Oximetry 95 95 Oxygen Delivery Method Room Air Room Air Oxygen Flow Rate Fraction of Inspired Oxygen 12/07/23 16:50 12/07/23 16:55 12/07/23 16:55 Temperature Pulse Rate 91 H Respiratory Rate 18 Blood Pressure 111/59 L 101/53 L Pulse Oximetry 95 Oxygen Delivery Method Room Air Oxygen Flow Rate Fraction of Inspired Oxygen 12/07/23 17:00 12/07/23 17:00 12/07/23 17:05 Temperature Pulse Rate 81 88 Respiratory Rate 23 30 H Blood Pressure 103/55 L Pulse Oximetry 95 95 Oxygen Delivery Method Room Air Oxygen Flow Rate Fraction of Inspired Oxygen 12/07/23 17:05 12/07/23 17:10 12/07/23 17:10 Temperature Pulse Rate 85 Respiratory Rate 31 H Blood Pressure 99/55 L 102/58 L Pulse Oximetry 95 Oxygen Delivery Method Oxygen Flow Rate Fraction of Inspired Oxygen 12/07/23 17:16 12/07/23 17:16 12/07/23 17:20 Temperature Pulse Rate 89 85 Respiratory Rate 29 H 29 H Blood Pressure 111/53 L Pulse Oximetry 97 96 Oxygen Delivery Method Room Air Oxygen Flow Rate Fraction of Inspired Oxygen 12/07/23 17:20 12/07/23 17:25 12/07/23 17:25 Temperature Pulse Rate 75 Respiratory Rate 29 H Blood Pressure 108/57 L 104/52 L Pulse Oximetry 96 Oxygen Delivery Method Room Air Oxygen Flow Rate Fraction of Inspired Oxygen MDM - SOB/Dyspnea Differential Diagnosis Differential diagnosis: Likely acute exacerbation of chronic obstructive airways disease, congestive heart failure, community acquired pneumonia and asthma with exacerbation Lab Data 12/07/23 15:31 12/07/23 15:31 Labs: Lab Results 12/07/23 12/07/23 Range/Units 15:31 16:50 WBC 12.1 H (4.5-11.0) X10^3/uL RBC 4.25 (4.0-5.2) X10^6/uL Hgb 12.4 (12.0-16.0) g/dL Hct 38.3 (36-46) % MCV 90.2 (80-100) fL MCH 29.1 (26-34) PG MCHC 32.3 (30-36) % RDW 15.0 H (11.6-14.8) % Plt Count 309 (150-400) X10^3/uL Neut % (Auto) 74.7 (50-75) % Lymph % (Auto) 13.4 L (25-40) % [place] % (Auto) 10.1 (3-14) % Eos % (Auto) 1.4 L (2-4) % Baso % (Auto) 0.4 (0-2) % Neut # (Auto) 9000 H (8496-6429) /uL Lymph # (Auto) 1600 (0254-3914) /uL [place] # (Auto) 1200 H (0-900) /uL Eos # (Auto) 200 (0-450) /uL Baso # (Auto) 0 (0-100) /uL PT 16.8 H (9.4-12.5) SECONDS INR 1.5 H (0.9-1.3) Sodium 140 (137-145) mmol/L Potassium 4.4 (3.4-5.1) mmol/L Chloride 107 (98-107) mmol/L Carbon Dioxide 26 (22-32) mmol/L BUN 22 H (7-17) mg/dL Creatinine 1.11 H (0.52-1.04) mg/dL Estimated GFR 49 L (>60) mL/min BUN/Creatinine Ratio 19.8 (6-22) Glucose 135 H (80-110) mg/dL Calcium 9.6 (8.4-10.2) mg/dL Total Bilirubin 0.7 (0.2-1.3) mg/dL AST 30 (14-36) IU/L ALT 31 (<35) IU/L Alkaline Phosphatase 82 (38-126) U/L Total Creatine Kinase 31 (30-135) U/L Troponin I < 0.012 (0.01-0.034) ng/mL NT-Pro-B Natriuret Pep 7540 H (<450) pg/mL Total Protein 7.0 (6.3-8.2) g/dL Albumin 3.9 (3.5-5.0) g/dL Globulin 3.1 (1.7-4.1) g/dL Albumin/Globulin Ratio 1.3 (1.0-2.8) TSH 2.35 (0.47-4.68) uIU/mL Urine Color Yellow Urine Appearance Clear Urine pH 6.5 (4.5-8.0) Ur Specific [place] 1.015 (1.000-1.035) Urine Protein Negative (Negative) Urine Glucose (UA) Negative (Negative) g/dL Urine Ketones Negative (NEGATIVE) Urine Occult Blood Negative (Negative) Urine Nitrate Negative (Negative) Urine Bilirubin Negative (NEGATIVE) Urine Urobilinogen 0.2 (0.2) E.U./dL Ur Leukocyte Esterase Negative (NEGATIVE) Urine RBC None seen (0-5/HPF) Urine WBC None seen (0-5/HPF) Ur Squamous Epith Cells None seen (0-5/HPF) Urine Bacteria None seen (None) Ur Culture Indicated? Cult not indicated Vol Urine Centrifuged 10ml (spun) Chlamy pneumoniae PCR Not detected (Not Detect) Adenovirus (PCR) Not detected (Not Detect) B.parapertussis DNA PCR Not detected (Not Detecte) Coronavirus OC43 (PCR) Not detected (Not Detect) Coronavirus HKU1 (PCR) Not detected (Not Detect) Coronavirus 229E (PCR) Not detected (Not Detect) SARS-CoV-2 (PCR) Detected H (Not Detecte) Coronavirus NL63 (PCR) Not detected (Not Detect) Human Metapneumovir PCR Not detected (Not Detect) Influenza Type A (PCR) Not detected (Not Detect) Influenza Type B (PCR) Not detected (Not Detect) M. pneumoniae (PCR) Not detected (Not Detect) Parainfluenza 1 (PCR) Not detected (Not Detect) Parainfluenza 2 (PCR) Not detected (Not Detect) Parainfluenza 3 (PCR) Not detected (Not Detect) Parainfluenza 4 (PCR) Not detected (Not Detect) RSV (PCR) Not detected (Not Detect) Entero/Rhino (PCR) Not detected (Not Detect) MDM Narrative Medical decision making narrative: Shortness of breath, patient arrived in atrial fibrillation with rapid ventricular response. She does have a history of atrial fibrillation and states that she was had to be cardioverted electrically twice. Patient does seem to have diminished breath sounds with barrel chest suggestive of longstanding obstructive lung disease. After discussing risks and benefits patient would like to proceed with an attempt to electrically cardiovert her atrial fibrillation. She states she has been compliant with her Eliquis and has not missed any doses to her knowledge. After 2 subsequent synchronized cardioversion attempts, initially with 150 joules and then 200 joules patient converted to sinus rhythm at a rate of 70-90 beats per minute. Laboratory work reviewed, patient has elevated BNP consistent with volume overload, however troponins undetectable, electrolytes within normal limits. Chest x-ray shows volume overload and patient was given 40 mg of IV Lasix. Patient's MAR states that her Lasix has been held for the last 3 days for unknown reasons. Patient was counseled to increase her Lasix dose to 40 daily for the next several days and to follow up with her heart doctor for further assessment. I do believe that if patient has improved volume status she will be less likely to go into atrial fibrillation. Critical Care Time Critical Care Time Critical Care Time: Yes Total Critical Care Time: 39 Attestation: a fib with rvr requiring electric cardioversion. Volume overload requiring IV diuretics. Discharge Plan Departure Patient Disposition: Home Clinical Impression: Atrial fibrillation with RVR, Congestive heart failure, Asthma Instructions: DI for Heart Failure, DI for Atrial Fibrillation Activity Restrictions/Additional Instructions: I recommend increasing your Lasix to 40 mg daily for at least the next 5 days. Continue your current metoprolol dose. Follow up with your aircraft mechanic electrical and radio. Prescriptions: No Action montelukast 10 mg Tablet 10 mg PO DAILY metoprolol succinate 100 mg Tablet Extended Release 24 Hr 100 mg PO DAILY atorvastatin 20 mg Tablet 20 mg PO BEDTIME albuterol sulfate 2.5 mg /3 mL (0.083 %) Solution For Nebulization 2.5 mg inhalation QD-QID PRN (Reason: sob) losartan 50 mg PO DAILY fluticasone propion-salmeterol [Advair HFA] 230-21 mcg/actuation Hfa Aerosol Inhaler 2 puff INHALATION BID furosemide 20 mg Tablet 20 mg PO DAILY apixaban 5 mg tablet 5 mg PO BID Qty: 60 2RF prednisone 5 mg tablet 5 mg PO DAILY Qty: 30 0RF Stand Alone Forms: Patient Portal/API
[2023-12-07 15:41] LABS: Add Manual Diff / Slide Review NO; Basophils Absolute Auto 0 /uL (0-100); Basophils Percent Auto 0.4 % (0-2); Eosinophils Absolute Auto 200 /uL (0-450); Eosinophils Percent Auto 1.4 % (2-4); Hematocrit 38.3 % (36-46); Hemoglobin 12.4 g/dL (12.0-16.0); Lymphocytes Absolute Auto 1600 /uL (1100-4500); Lymphocytes Percent Auto 13.4 % (25-40); Mean Corpuscular HGB Conc 32.3 % (30-36); Mean Corpuscular Hemoglobin 29.1 PG (26-34); Mean Corpuscular Volume 90.2 fL (80-100); Monocytes Absolute Auto 1200 /uL (0-900); Monocytes Percent Auto 10.1 % (3-14); Neutrophils Absolute Auto 9000 /uL (1500-7000); Neutrophils Percent Auto 74.7 % (50-75); Platelet Count 309 X10^3/uL (150-400); Red Blood Cell Count 4.25 X10^6/uL (4.0-5.2); White Blood Cell Count 12.1 X10^3/uL (4.5-11.0)
[2023-12-07 15:47] LABS: INR 1.5 (0.9-1.3); Prothrombin Time 16.8 SECONDS (9.4-12.5)
[2023-12-07] MEDS: FUROSEMIDE 40 MG/4 ML VIAL IV (15:48)
[2023-12-07] MEDS: ALBUTEROL/IPRATROPIUM 3 ML AMPUL INH (15:49)
[2023-12-07 15:53] LABS: Alanine Aminotransferase 31 IU/L (<35); Albumin 3.9 g/dL (3.5-5.0); Albumin Globulin Ratio 1.3 (1.0-2.8); Alkaline Phosphatase 82 U/L (38-126); Aspartate Aminotransferase 30 IU/L (14-36); BUN Creatinine Ratio 19.8 (6-22); Bilirubin Total 0.7 mg/dL (0.2-1.3); Blood Urea Nitrogen 22 mg/dL (7-17); Calcium 9.6 mg/dL (8.4-10.2); Carbon Dioxide 26 mmol/L (22-32); Chloride 107 mmol/L (98-107); Creatine Kinase 31 U/L (30-135); Estimated Glomerular Filt Rate 49 mL/min (>60); Globulin 3.1 g/dL (1.7-4.1); Glucose 135 mg/dL (80-110); HEMOLYSIS < 15 (0-50); Potassium 4.4 mmol/L (3.4-5.1); Sodium 140 mmol/L (137-145)
--- NOTE | 2023-12-07 15:55 | PC.NURSE ---
Pt C/O palpitations in my throat and shortness of breath the past 3 days which is worse at night when she lays down. She denies chest pain, reports increased WOB with movement. History of afib and electrical cardioversions in 2021 and 2022. Pt reports taking her blood thinner daily.
[2023-12-07] MEDS: propofoL 200 MG/20 ML VIAL 100 MG IV (16:01)
[2023-12-07 16:04] LABS: NT-proBNP (BNP-Adult 18+) 7540 pg/mL (<450); Troponin I < 0.012 ng/mL (0.01-0.034)
--- NOTE | 2023-12-07 16:10 | PC.NURSE ---
Pt consent form signed. T/O called at 1600 and procedure start time 1601. Dr. Knight, RT, RN, and SIDING MECHANIC at bedside for procedure. Pt became hypoxic with hypoventilation and ambu bag was initiated by RT at 1603. Pt had no response for first shock. 2nd shock produced NSR verified by EKG. Pt required ambu bag until 1610 and was transitioned to 2L NC while more responsive.
[2023-12-07 16:24] LABS: Thyroid Stimulating Hormone 2.35 uIU/mL (0.47-4.68)
[2023-12-07 16:27] LABS: Adenovirus Not Detected (Not Detect); B. parapertussis Not Detected (Not Detecte); Bordetella pertussis Not Detected (Not Detect); Chlamydophila pneumoniae Not Detected (Not Detect); Coronavirus 229E Not Detected (Not Detect); Coronavirus HKU1 Not Detected (Not Detect); Coronavirus NL 63 Not Detected (Not Detect); Coronavirus OC43 Not Detected (Not Detect); Human Metapneumovirus Not Detected (Not Detect); Human Rhinovirus/Enterovirus Not Detected (Not Detect); Influenza A Not Detected (Not Detect); Influenza B Not Detected (Not Detect); Mycoplasma pneumoniae Not Detected (Not Detect); Parainfluenza Virus 1 Not Detected (Not Detect); Parainfluenza Virus 2 Not Detected (Not Detect); Parainfluenza Virus 3 Not Detected (Not Detect); Parainfluenza Virus 4 Not Detected (Not Detect); Respiratory Syncytial Virus Not Detected (Not Detect)
[2023-12-07 16:29] LABS: SARS- CoV-2 Detected (Not Detecte)
[2023-12-07 16:58] LABS: Appearance Urine UA CLEAR; Bilirubin Urine UA NEGATIVE (NEGATIVE); Color Urine UA YELLOW; Glucose Urine UA NEGATIVE (Negative); Ketones Urine UA NEGATIVE (NEGATIVE); Leukocyte Esterase Urine UA NEGATIVE (NEGATIVE); Nitrite Urine UA NEGATIVE (Negative); Occult Blood Urine UA NEGATIVE (Negative); Protein Urine UA NEGATIVE (Negative); Specific Gravity Urine UA 1.015 (1.000-1.035); Urobilinogen Urine UA 0.2 E.U./dL (0.2)
[2023-12-07 17:00] LABS: pH Urine UA 6.5 (4.5-8.0)
[2023-12-07 17:06] LABS: Bacteria Urine None Seen; Culture Indicated Urine Cult Not Indicated; RBC Urine None Seen (0-5/HPF); Squamous Epithelial Cell Urine None Seen (0-5/HPF); Urine Volume 10mL (spun); WBC Urine None Seen (0-5/HPF)
== END 2023-12-07 18:20 | disposition home or self-care (01) ==
PROVIDERS: Emergency Provider Emergency Medicine
DX: I48.20 Chronic atrial fibrillation, unspecified (principal); Z79.01 Long term (current) use of anticoagulants; U07.1 COVID-19; I50.9 Heart failure, unspecified; J45.909 Unspecified asthma, uncomplicated; Z79.899 Other long term (current) drug therapy
CPT/HCPCS: 36415; 71045; 80053; 81001; 82550; 83880; 84443; 84484; 85025; 85610; 87633; 92960; 93005; 94640; 96374; 99152; 99153; 99285; 99291; J1940; J2704

== ENCOUNTER 2023-12-19 09:40 | Emergency (ER) | payer MEDICARE, SELFPAY ==
[2023-10-10 15:13] VITALS: BMI 33.3
[2023-12-19] VITALS (97 sets, daily range): BP systolic 98–136; BP diastolic 55–84; PULSE 65–157; RESP 24–68; TEMP 36; O2SAT 88–99; BMI 35.4
--- NOTE | 2023-12-19 09:46 | DI.RAD.S_ITS ---
PROCEDURE: XR CHEST 1V INDICATIONS: short of breath TECHNIQUE: One view of the chest was acquired. COMPARISON: [facility], CR, XR CHEST 1V, 12/07/2023, 15:37. FINDINGS: Surgical changes and devices: None. Lungs and pleura: Interstitial pulmonary edema, [id number] bilateral pleural effusions, bibasilar atelectasis. Mediastinum: Cardiomegaly. No mediastinal adenopathy identified. Bones and chest wall: No suspicious bony lesions. Overlying soft tissues appear unremarkable. IMPRESSION: Congestive heart failure exacerbation. Dictated by: Ricco Solomon M.D. on 12/19/2023 at 10:33 Approved by: Ricco Solomon M.D. on 12/19/2023 at 10:36
[2023-12-19] MEDS: dilTIAZem 5 MG/ML SDV 10 MG IV (09:50)
[2023-12-19] MEDS: ALBUTEROL/IPRATROPIUM 3 ML AMPUL INH ×2 (09:51→23:28)
--- NOTE | 2023-12-19 09:55 | ED_ITS ---
HPI - Arrhythmia/Palpitations <DO Wilder Kitchen Last Filed: 12/20/23 07:12> General Chief Complaint: Shortness of Breath/Dyspnea Stated Complaint: SOB Time Seen by Provider: 12/19/23 09:46 Source: patient Mode of arrival: Ambulatory History of Present Illness HPI narrative: Patient 83-year-old female history of atrial fibrillation on Eliquis, history of congestive heart failure and asthma presents today with increasing shortness of breath. She is currently residing at rehab facility secondary to ankle fracture. Presents today with increasing shortness of breath and AFib with RVR. She was seen evaluated here December 06 found to be in AFib with RVR to cardioversion attempts were made she ultimately was converted into sinus rhythm, she was also diagnosed with COVID at the time and eventually released back to rehab facility. She now is back in AFib with RVR and having increasing difficulty breathing, she had an echo in 2022 which did show an EF 55%. Related Data Home Medications Medication Instructions Recorded Confirmed albuterol sulfate 2.5 mg/3 mL 2.5 mg inhalation QD-QID PRN sob 10/11/23 10/11/23 (0.083 %) solution for nebulization atorvastatin 20 mg tablet 20 mg PO BEDTIME 10/11/23 10/11/23 fluticasone propionate 230 2 puff inhalation BID 10/11/23 10/11/23 mcg-salmeterol 21 mcg/actuation HFA inhaler (Advair HFA) furosemide 20 mg tablet 20 mg PO DAILY 10/11/23 10/11/23 losartan 50 mg PO DAILY hypertension 10/11/23 10/11/23 metoprolol succinate 100 mg 100 mg PO DAILY 10/11/23 10/11/23 tablet,extended release 24 hr montelukast 10 mg tablet 10 mg PO DAILY 10/11/23 10/11/23 Previous Rx's Medication Instructions Recorded apixaban 5 mg tablet 5 mg PO BID #60 tabs 10/15/23 prednisone 5 mg tablet 5 mg PO DAILY #30 tabs 10/15/23 Allergies Allergy/AdvReac Type Severity Reaction Status Date / Time Penicillins Allergy Verified 10/10/23 10:36 Patient History <DO Wilder Kitchen Last Filed: 12/20/23 07:12> Medical History Stage 3b chronic kidney disease (CKD) History of cardioversion Persistent atrial fibrillation Systolic heart failure CAD (coronary artery disease) Emphysema of lung Surgical History No pertinent past surgical history Social History household members: none Smoking Status: Former smoker substance use type: does not use Smoking Status: Former smoker alcohol intake frequency: holidays/special occasions only Substance Use Type: does not use Exam <Dariela Anton DO - Last Filed: 12/20/23 07:12> Initial Vital Signs Initial Vital Signs: Vital Signs Temperature 96.8 F L 12/19/23 09:43 Pulse Rate 144 H 12/19/23 09:43 Respiratory Rate 12/19/23 09:43 Blood Pressure 123/75 12/19/23 09:43 Pulse Oximetry 88 L 12/19/23 09:43 Oxygen Delivery Method Room Air 12/19/23 09:43 GENERAL: Alert pleasant 83-year-old female appears in [id number] respiratory distress HEENT: Head atraumatic,EOMI, pupils reactive, face symmetric, [moist] mucous membranes CARDIOVASCULAR: Irregularly irregular RESPIRATORY: Tachypneic ABDOMEN: Soft, nontender. Normoactive bowel sounds all 4 quadrants. No guarding or rebound. EXTREMITIES: Normal range of motion, no clubbing or edema. Neurovascularly intact NEUROLOGICAL: Alert and oriented x4 SKIN: Warm, dry, no laceration, no petechiae, no rashes or lesions. <Victoria Knight MD - Last Filed: 12/20/23 02:43> Initial Vital Signs Initial Vital Signs: Vital Signs Temperature 96.8 F L 12/19/23 09:43 Pulse Rate 144 H 12/19/23 09:43 Respiratory Rate 12/19/23 09:43 Blood Pressure 123/75 12/19/23 09:43 Pulse Oximetry 88 L 12/19/23 09:43 Oxygen Delivery Method Room Air 12/19/23 09:43 Procedures <Dariela Anton DO - Last Filed: 12/20/23 07:12> Cardioversion Stability: Stable Number of attempts (shocks): 3 Joules used: 120, 150 and 200 Cardiac rhythm post-cardioversion: sinus rhythm Procedural Sedation Consent signed: Yes Time out performed: Yes Indication: cardioversion IV Propofol dose (mg): 50 Intraservice time/total sedation time (min): 16 ED Sedation Level: Moderate (Concious) Patient Tolerated Procedure: Well and No complications Complications: none Course <Dariela Anton, DO - Last Filed: 12/20/23 07:12> Orders Ordered: ED Orders 12/19/23 22:40 ABG [Arterial Blood Gas] Stat Discontinued Medications Albuterol/Ipratropium (Albuterol/Ipratropium 3 Ml Ampul) 3 ml INH NOW ONE Stop: 12/19/23 09:48 Last Admin: 12/19/23 09:51 Dose: 3 ml Documented By: KATI Albuterol/Ipratropium (Albuterol/Ipratropium 3 Ml Ampul) 3 ml INH NOW ONE Stop: 12/19/23 23:08 Last Admin: 12/19/23 23:28 Dose: 3 ml Documented By: Diltiazem HCl (Diltiazem 5 Mg/Ml Sdv) 10 mg IV NOW ONE Stop: 12/19/23 09:48 Last Admin: 12/19/23 09:50 Dose: 10 mg Documented By: KATI Furosemide (Furosemide 40 Mg/4 Ml Vial) 40 mg IV NOW ONE Stop: 12/19/23 10:37 Last Admin: 12/19/23 10:39 Dose: 40 mg Documented By: KATI Furosemide (Furosemide 40 Mg/4 Ml Vial) 40 mg IV NOW ONE Stop: 12/19/23 21:06 Last Admin: 12/19/23 22:46 Dose: 40 mg Documented By: ILANA Amiodarone HCl/Dextrose (Nexterone) 150 mg in 100 mls @ 600 mls/hr IV NOW ONE; Protocol Stop: 12/19/23 13:55 Last Infusion: 12/19/23 14:38 Dose: Infused Documented By: Admin: 12/19/23 14:25 Dose: 600 mls/hr Documented By: ILANA Amiodarone HCl/Dextrose (Nexterone) 360 mg in 200 mls @ 33.333 mls/hr IV NOW ONE; Protocol Stop: 12/19/23 20:44 Last Titration: 12/19/23 20:48 Dose: Infused Documented By: Admin: 12/19/23 14:55 Dose: 33.333 ml/hr, 33.33 mls/hr Documented By: ILANA Amiodarone HCl/Dextrose (Nexterone) 360 mg in 200 mls @ 16.7 mls/hr IV CONT ANNELIESE; Protocol Stop: 12/20/23 08:29 Last Titration: 12/19/23 23:20 Dose: 16.7 mls/hr Documented By: Admin: 12/19/23 20:47 Dose: 16.7 ml/hr, 16.7 mls/hr Documented By: ILANA Amiodarone HCl/Dextrose (Nexterone) 180 mg in 100 mls @ 16.7 mls/hr IV CONT ANNELIESE; Protocol Stop: 12/20/23 14:30 Metoprolol Tartrate (Metoprolol Tartrate 5 Mg/5 Ml Inj) 5 mg IV NOW ONE Stop: 12/19/23 10:37 Last Admin: 12/19/23 10:45 Dose: 5 mg Documented By: KATI Propofol (Propofol 200 Mg/20 Ml Vial) 90 mg 1 mg/kg (90 mg) IV NOW ONE Stop: 12/19/23 11:23 Last Admin: 12/19/23 12:01 Dose: 50 mg Documented By: ILANA Vital Signs Vital signs: Vital Signs - 8 hr 12/19/23 23:11 Pulse Oximetry 93 Oxygen Delivery Method Nasal Cannula Oxygen Flow Rate 2.5 <Victoria Knight MD - Last Filed: 12/20/23 02:43> Orders Ordered: ED Orders 12/19/23 22:40 ABG [Arterial Blood Gas] Stat Discontinued Medications Albuterol/Ipratropium (Albuterol/Ipratropium 3 Ml Ampul) 3 ml INH NOW ONE Stop: 12/19/23 09:48 Last Admin: 12/19/23 09:51 Dose: 3 ml Documented By: KATI Albuterol/Ipratropium (Albuterol/Ipratropium 3 Ml Ampul) 3 ml INH NOW ONE Stop: 12/19/23 23:08 Last Admin: 12/19/23 23:28 Dose: 3 ml Documented By: Diltiazem HCl (Diltiazem 5 Mg/Ml Sdv) 10 mg IV NOW ONE Stop: 12/19/23 09:48 Last Admin: 12/19/23 09:50 Dose: 10 mg Documented By: KATI Furosemide (Furosemide 40 Mg/4 Ml Vial) 40 mg IV NOW ONE Stop: 12/19/23 10:37 Last Admin: 12/19/23 10:39 Dose: 40 mg Documented By: KATI Furosemide (Furosemide 40 Mg/4 Ml Vial) 40 mg IV NOW ONE Stop: 12/19/23 21:06 Last Admin: 12/19/23 22:46 Dose: 40 mg Documented By: ILANA Amiodarone HCl/Dextrose (Nexterone) 150 mg in 100 mls @ 600 mls/hr IV NOW ONE; Protocol Stop: 12/19/23 13:55 Last Infusion: 12/19/23 14:38 Dose: Infused Documented By: [facility] Admin: 12/19/23 14:25 Dose: 600 mls/hr Documented By: ILANA Amiodarone HCl/Dextrose (Nexterone) 360 mg in 200 mls @ 33.333 mls/hr IV NOW ONE; Protocol Stop: 12/19/23 20:44 Last Titration: 12/19/23 20:48 Dose: Infused Documented By: [facility] Admin: 12/19/23 14:55 Dose: 33.333 ml/hr, 33.33 mls/hr Documented By: [facility] Amiodarone HCl/Dextrose (Nexterone) 360 mg in 200 mls @ 16.7 mls/hr IV CONT ANNELIESE; Protocol Stop: 12/20/23 08:29 Last Titration: 12/19/23 23:20 Dose: 16.7 mls/hr Documented By: [facility] Admin: 12/19/23 20:47 Dose: 16.7 ml/hr, 16.7 mls/hr Documented By: [facility] Amiodarone HCl/Dextrose (Nexterone) 180 mg in 100 mls @ 16.7 mls/hr IV CONT ANNELIESE; Protocol Stop: 12/20/23 14:30 Metoprolol Tartrate (Metoprolol Tartrate 5 Mg/5 Ml Inj) 5 mg IV NOW ONE Stop: 12/19/23 10:37 Last Admin: 12/19/23 10:45 Dose: 5 mg Documented By: KATI Propofol (Propofol 200 Mg/20 Ml Vial) 90 mg 1 mg/kg (90 mg) IV NOW ONE Stop: 12/19/23 11:23 Last Admin: 12/19/23 12:01 Dose: 50 mg Documented By: SPF Vital Signs Vital signs: Vital Signs - 8 hr 12/19/23 23:11 Pulse Oximetry 93 Oxygen Delivery Method Nasal Cannula Oxygen Flow Rate 2.5 MDM - Arrhythmia/Palpitations <Dariela Anton DO - Last Filed: 12/20/23 07:12> Lab Data 12/19/23 09:47 12/19/23 09:47 Labs: Lab Results 12/19/23 12/19/23 12/19/23 Range/Units 09:47 17:30 22:40 WBC 15.4 H (4.5-11.0) X10^3/uL RBC 4.24 (4.0-5.2) X10^6/uL Hgb 12.1 (12.0-16.0) g/dL Hct 37.4 (36-46) % MCV 88.1 (80-100) fL MCH 28.6 (26-34) PG MCHC 32.5 (30-36) % RDW 15.0 H (11.6-14.8) % Plt Count 368 (150-400) X10^3/uL Neut % (Auto) 86.4 H (50-75) % Lymph % (Auto) 7.1 L (25-40) % Nolan % (Auto) 5.4 (3-14) % Eos % (Auto) 0.6 L (2-4) % Baso % (Auto) 0.5 (0-2) % Neut # (Auto) 40201 H (3602-1222) /uL Lymph # (Auto) 1100 (2201-6267) /uL Nolan # (Auto) 800 (0-900) /uL Eos # (Auto) 100 (0-450) /uL Baso # (Auto) 100 (0-100) /uL PT 38.6 H (9.4-12.5) SECONDS INR 3.3 H (0.9-1.3) APTT 37 H (25.1-36.5) SECONDS ABG Sample Site Right radial ABG pH 7.48 H (7.35-7.45) ABG pCO2 28.0 L (35-45) mmHg ABG pO2 90 (80-100) mmHg ABG HCO3 21 L (23-27) mmol/L ABG Total CO2 22 L (23-27) mmol/L ABG O2 Saturation 98 (95-100) % ABG Base Excess -2.0 (-2-3) mmol/L FiO2 21 Sodium 133 L (137-145) mmol/L Potassium 4.1 (3.4-5.1) mmol/L Chloride 106 (98-107) mmol/L Carbon Dioxide 18 L (22-32) mmol/L BUN 28 H (7-17) mg/dL Creatinine 0.94 (0.52-1.04) mg/dL Estimated GFR > 60 (>60) mL/min BUN/Creatinine Ratio 29.8 H (6-22) Glucose 195 H (80-110) mg/dL Calcium 9.1 (8.4-10.2) mg/dL Total Bilirubin 1.5 H (0.2-1.3) mg/dL AST 86 H (14-36) IU/L ALT 78 H (<35) IU/L Alkaline Phosphatase 120 (38-126) U/L Total Creatine Kinase 29 L 33 (30-135) U/L Troponin I < 0.012 < 0.012 (0.01-0.034) ng/mL NT-Pro-B Natriuret Pep 21075 H (<450) pg/mL Total Protein 6.4 (6.3-8.2) g/dL Albumin 3.4 L (3.5-5.0) g/dL Globulin 3.0 (1.7-4.1) g/dL Albumin/Globulin Ratio 1.1 (1.0-2.8) Lipase 256 (23-300) U/L Imaging Data Chest x-ray: Radiologist's Impresson: PROCEDURE: XR CHEST 1V INDICATIONS: short of breath TECHNIQUE: One view of the chest was acquired. COMPARISON: , , XR CHEST 1V, 12/07/2023, 15:37. FINDINGS: Surgical changes and devices: None. Lungs and pleura: Interstitial pulmonary edema, [id number] bilateral pleural effusions, bibasilar atelectasis. Mediastinum: Cardiomegaly. No mediastinal adenopathy identified. Bones and chest wall: No suspicious bony lesions. Overlying soft tissues appear unremarkable. IMPRESSION: Congestive heart failure exacerbation. Dictated by: Ricco Solomon M.D. on 12/19/2023 at 10:33 ECG Data Interpretation: Atrial fibrillation left bundle-branch block noted rate 136 similar to previous EKGs MDM Narrative Medical decision making narrative: MDM CC: Shortness of breath Complicating co-morbidities: Atrial fibrillation, on Eliquis, CHF, asthma Corroborating data: [ ] Data collected from: [ ] Medical records reviewed: [ ] Differential considered: CHF AFib asthma Exam documented above, pertinent findings include: Obvious shortness of breath tachypnea conversational dyspnea, irregular rapid heart rate Lab Test results independently reviewed as above. Pertinent findings: WBC 15.4, hemoglobin 12.1, hematocrit 37.4, sodium 133 potassium 4.1, chloride 106, carbon dioxide 18, BUN 28 creatinine 0.94, bilirubin 1.5, AST 86, ALT 78, BNP 15,000, troponin negative Independently reviewed EKG as above AFib with RVR Imaging studies independently reviewed: Congestive heart failure Consultations: 10:55 Dr. Noonan on-call cardiology updated patient's symptoms test results reports that there is no contraindication to Re cardioversion today recommend starting on amiodarone and 1330-Dr. Teauge in ED to see and evaluate patient. His personal bedside ultrasound shows severely decreased EF. Recommends transferring and getting a formal echo 1500-Dr. Lovelace updated on patient's symptoms test results recommends waiting for official echo results continuing amiodarone and diuresis Treatments: Lasix nebulizer Dilt Lopressor Re-evaluations: She is breathing better after lasix, will wean off oxygen. Discussion: Patient 83-year-old female history of atrial fibrillation congestive heart failure presenting today with AFib obvious congestive heart failure. She has fluid overload on x-ray and elevated BNP at 15,000. He was cardioverted to sinus rhythm but it did take 3 attempts. She was then started on amiodarone, she has diuresed with Lasix. Echo shows of 10-20%. Waiting transfer to [facility] Signed Out to Dr. Knight 2100 -[facility] does not have any available beds, [facility] reviewed patient's case and accepted patient for transfer. She was able to be weaned from high- flow nasal cannula to 3 L nasal cannula. While in the emergency department heart rate decreased to 66 beats per minute, she was continued on amiodarone drip. Patient transported via [facility] in stable condition to [facility] <Victoria Knight MD - Last Filed: 12/20/23 02:43> Lab Data Labs: Lab Results 12/19/23 12/19/23 12/19/23 Range/Units 09:47 17:30 22:40 WBC 15.4 H (4.5-11.0) X10^3/uL RBC 4.24 (4.0-5.2) X10^6/uL Hgb 12.1 (12.0-16.0) g/dL Hct 37.4 (36-46) % MCV 88.1 (80-100) fL MCH 28.6 (26-34) PG MCHC 32.5 (30-36) % RDW 15.0 H (11.6-14.8) % Plt Count 368 (150-400) X10^3/uL Neut % (Auto) 86.4 H (50-75) % Lymph % (Auto) 7.1 L (25-40) % Nolan % (Auto) 5.4 (3-14) % Eos % (Auto) 0.6 L (2-4) % Baso % (Auto) 0.5 (0-2) % Neut # (Auto) 93323 H (9242-7490) /uL Lymph # (Auto) 1100 (0297-7611) /uL Nolan # (Auto) 800 (0-900) /uL Eos # (Auto) 100 (0-450) /uL Baso # (Auto) 100 (0-100) /uL PT 38.6 H (9.4-12.5) SECONDS INR 3.3 H (0.9-1.3) APTT 37 H (25.1-36.5) SECONDS ABG Sample Site Right radial ABG pH 7.48 H (7.35-7.45) ABG pCO2 28.0 L (35-45) mmHg ABG pO2 90 (80-100) mmHg ABG HCO3 21 L (23-27) mmol/L ABG Total CO2 22 L (23-27) mmol/L ABG O2 Saturation 98 (95-100) % ABG Base Excess -2.0 (-2-3) mmol/L FiO2 21 Sodium 133 L (137-145) mmol/L Potassium 4.1 (3.4-5.1) mmol/L Chloride 106 (98-107) mmol/L Carbon Dioxide 18 L (22-32) mmol/L BUN 28 H (7-17) mg/dL Creatinine 0.94 (0.52-1.04) mg/dL Estimated GFR > 60 (>60) mL/min BUN/Creatinine Ratio 29.8 H (6-22) Glucose 195 H (80-110) mg/dL Calcium 9.1 (8.4-10.2) mg/dL Total Bilirubin 1.5 H (0.2-1.3) mg/dL AST 86 H (14-36) IU/L ALT 78 H (<35) IU/L Alkaline Phosphatase 120 (38-126) U/L Total Creatine Kinase 29 L 33 (30-135) U/L Troponin I < 0.012 < 0.012 (0.01-0.034) ng/mL NT-Pro-B Natriuret Pep 45686 H (<450) pg/mL Total Protein 6.4 (6.3-8.2) g/dL Albumin 3.4 L (3.5-5.0) g/dL Globulin 3.0 (1.7-4.1) g/dL Albumin/Globulin Ratio 1.1 (1.0-2.8) Lipase 256 (23-300) U/L MDM Narrative Medical decision making narrative: MDM CC: Shortness of breath Complicating co-morbidities: Atrial fibrillation, on Eliquis, CHF, asthma Corroborating data: [ ] Data collected from: [ ] Medical records reviewed: [ ] Differential considered: CHF AFib asthma Exam documented above, pertinent findings include: Obvious shortness of breath tachypnea conversational dyspnea, irregular rapid heart rate Lab Test results independently reviewed as above. Pertinent findings: WBC 15.4, hemoglobin 12.1, hematocrit 37.4, sodium 133 potassium 4.1, chloride 106, carbon dioxide 18, BUN 28 creatinine 0.94, bilirubin 1.5, AST 86, ALT 78, BNP 15,000, troponin negative Independently reviewed EKG as above AFib with RVR Imaging studies independently reviewed: Congestive heart failure Consultations: 10:55 Dr. Noonan on-call cardiology updated patient's symptoms test results reports that there is no contraindication to Re cardioversion today recommend starting on amiodarone and Treatments: Lasix nebulizer Dilt Lopressor Re-evaluations: [ ] Discussion: Patient 83-year-old female history of atrial fibrillation congestive heart failure presenting today with AFib obvious congestive heart failure. She has fluid overload on x-ray and elevated BNP at 15,000. He was cardioverted to sinus rhythm but it did take 3 attempts. She was then started on amiodarone, she has diuresed with Lasix. 1330-Dr. Acosta in ED dizzy and evaluate patient. His personal bedside ultrasound shows severely decreased EF. Recommends transferring and getting a formal echo 1500-Dr. Lovelace updated on patient's symptoms test results recommends waiting for official echo results continuing amiodarone and diuresis 2100 -[facility] does not have any available beds, [facility] reviewed patient's case and accepted patient for transfer. She was able to be weaned from high- flow nasal cannula to 3 L nasal cannula. While in the emergency department heart rate decreased to 66 beats per minute, she was continued on amiodarone drip. Patient transported via [facility] in stable condition to [facility] Critical Care Time <Dariela Anton, - Last Filed: 12/20/23 07:12> Critical Care Time Critical Care Time: Yes Total Critical Care Time: 45 Attestation: The high probability of a clinically significant, sudden or life threatening deterioration of the [cardiovascular] system(s) required my full and direct attention, intervention and personal management. The aggregate critical care time was [45] minutes. This time is in addition to time spent performing reported procedures but includes the following: [x] Data Review and interpretation [x] Patient assessment and monitoring of vital signs [x] Documentation [x] Medication orders and management Discharge Plan Departure Patient Disposition: [facility] Clinical Impression: Atrial fibrillation with RVR, Congestive heart failure, Acute hypoxemic respiratory failure Prescriptions: No Action montelukast 10 mg Tablet 10 mg PO DAILY metoprolol succinate 100 mg Tablet Extended Release 24 Hr 100 mg PO DAILY atorvastatin 20 mg Tablet 20 mg PO BEDTIME albuterol sulfate 2.5 mg /3 mL (0.083 %) Solution For Nebulization 2.5 mg inhalation QD-QID PRN (Reason: sob) losartan 50 mg PO DAILY fluticasone propion-salmeterol [Advair HFA] 230-21 mcg/actuation Hfa Aerosol Inhaler 2 puff INHALATION BID furosemide 20 mg Tablet 20 mg PO DAILY apixaban 5 mg tablet 5 mg PO BID Qty: 60 2RF prednisone 5 mg tablet 5 mg PO DAILY Qty: 30 0RF
[2023-12-19 09:56] LABS: Add Manual Diff / Slide Review NO; Basophils Absolute Auto 100 /uL (0-100); Basophils Percent Auto 0.5 % (0-2); Eosinophils Absolute Auto 100 /uL (0-450); Eosinophils Percent Auto 0.6 % (2-4); Hematocrit 37.4 % (36-46); Hemoglobin 12.1 g/dL (12.0-16.0); Lymphocytes Absolute Auto 1100 /uL (1100-4500); Lymphocytes Percent Auto 7.1 % (25-40); Mean Corpuscular HGB Conc 32.5 % (30-36); Mean Corpuscular Hemoglobin 28.6 PG (26-34); Mean Corpuscular Volume 88.1 fL (80-100); Monocytes Absolute Auto 800 /uL (0-900); Monocytes Percent Auto 5.4 % (3-14); Neutrophils Absolute Auto 13300 /uL (1500-7000); Neutrophils Percent Auto 86.4 % (50-75); Platelet Count 368 X10^3/uL (150-400); Red Blood Cell Count 4.24 X10^6/uL (4.0-5.2); White Blood Cell Count 15.4 X10^3/uL (4.5-11.0)
[2023-12-19 10:03] LABS: INR 3.3 (0.9-1.3); Prothrombin Time 38.6 SECONDS (9.4-12.5)
[2023-12-19 10:09] LABS: Alanine Aminotransferase 78 IU/L (<35); Albumin 3.4 g/dL (3.5-5.0); Albumin Globulin Ratio 1.1 (1.0-2.8); Alkaline Phosphatase 120 U/L (38-126); Aspartate Aminotransferase 86 IU/L (14-36); BUN Creatinine Ratio 29.8 (6-22); Bilirubin Total 1.5 mg/dL (0.2-1.3); Blood Urea Nitrogen 28 mg/dL (7-17); Calcium 9.1 mg/dL (8.4-10.2); Carbon Dioxide 18 mmol/L (22-32); Chloride 106 mmol/L (98-107); Creatine Kinase 29 U/L (30-135); Estimated Glomerular Filt Rate > 60 mL/min (>60); Glucose 195 mg/dL (80-110); HEMOLYSIS < 15 (0-50); Lipase 256 U/L (23-300); Potassium 4.1 mmol/L (3.4-5.1); Sodium 133 mmol/L (137-145); Total Protein 6.4 g/dL (6.3-8.2)
[2023-12-19 10:11] LABS: PTT Partial Thromboplastin Tim 37 SECONDS (25.1-36.5)
[2023-12-19 10:20] LABS: NT-proBNP (BNP-Adult 18+) 15000 pg/mL (<450)
[2023-12-19 10:21] LABS: Troponin I < 0.012 ng/mL (0.01-0.034)
[2023-12-19] MEDS: FUROSEMIDE 40 MG/4 ML VIAL IV ×2 (10:39→22:46)
[2023-12-19] MEDS: METOPROLOL TARTRATE 5 MG/5 ML INJ IV (10:45)
[2023-12-19] MEDS: propofoL 200 MG/20 ML VIAL 90 MG IV (12:01)
--- NOTE | 2023-12-19 12:30 | DI.ECHO.S_ITS ---
[facility]---------[facility] +---------+ : : [address] [place] : : : : [id number] : : : : Phone: [phone]+ Echocardiogram Report + + :Name: RAYNE BARROSO Study Date: 12/19/2023 Height: 63 in : :[facility] ReadingLocation: Weight: 200 lb : : Gender: Female BSA: 1.9 m2 : :: 1940 Age: 83 yrs BP: 126/78 mmHg: :Reason For Study: CONGESTIVE HEART FAILURE : :Ordering Physician: MARCIO, : :NATHAN Performed By: Eri Breaux : :Referring: NATHAN BUCKLEY : + + Interpretation Summary The patient was in normal sinus rhythm during the exam. The patient had a bundle branch block rhythm during the exam. Intermittent PACs, nonconducted PACs seen as well. The left ventricle is borderline dilated. Left ventricular systolic function is severely reduced. The ejection fraction is estimated to be 15-20%. Previous LVEF 60 to 65%. Moderate to severe global hypokinesis with akinetic inferior wall, inferior septum. Best contractility in the basal anterolateral wall. New wall motion abnormalities. The right ventricle is grossly normal size. Visually RV function mild to moderately reduced. There is moderate mitral regurgitation. Compared to the prior echo study, there has been an increase in the severity of mitral regurgitation. There is moderate tricuspid regurgitation. Compared to the prior echo exam, there has been an increase in TR severity. The right ventricular systolic pressure is estimated to be at least 52 mmHg based on an estimated right atrial pressure of 15 mm Hg. Compared to the prior echo exam, there has been an increase in the severity of pulmonary hypertension. Procedure: The study quality was technically limited. The study quality was technically adequate. Comparison is made with the echocardiogram of 10/11/2023. Patient was scanned in a supine position. The heart rate ranged between 63-87 bpm during the study. The patient was in normal sinus rhythm during the exam. The patient had a bundle branch block rhythm during the exam. Intermittent PACs, nonconducted PACs seen as well. Left Ventricle: The left ventricle is borderline dilated. There is normal left ventricular wall thickness. There is no thrombus. The ejection fraction is estimated to be 15-20%. Left ventricular systolic function is severely reduced. Moderate to severe global hypokinesis with akinetic inferior wall, inferior septum. Best contractility in the basal anterolateral wall. New wall motion abnormalities. There is a mild dyssynchronous contraction pattern, consistent with a conduction abnormality. Right Ventricle: The right ventricle is grossly normal size. Visually RV function mild to moderately reduced. Mitral Valve: There is moderate to severe mitral annular calcification. No significant mitral valve stenosis. There is moderate mitral regurgitation. Compared to the prior echo study, there has been an increase in the severity of mitral regurgitation. Tricuspid Valve: The tricuspid valve is normal. There is moderate tricuspid regurgitation. The right ventricular systolic pressure is estimated to be at least 52 mmHg based on an estimated right atrial pressure of 15 mm Hg. Compared to the prior echo exam, there has been an increase in TR severity. Compared to the prior echo exam, there has been an increase in the severity of pulmonary hypertension. Great Vessels: The IVC is dilated (diameter is greater than 2.1 cm) and it collapses less than 50% with a sniff. This suggests a high right atrial pressure of 15 mm Hg. Pericardium/ Pleura There is no pericardial effusion. MMode/2D Measurements & Calculations LVIDd: 4.3 cm IVC diam: 2.1 cm LVIDs: 3.9 cm FS: 8.4 % IVSd: 0.77 cm LVPWd: 0.72 cm LV dhillon. diameter/BSA (cm/m^2): 2.2 LV sys. diameter/BSA (cm/m^2): 2.0 Doppler Measurements & Calculations MV E max maggie: 83.5 cm/sec TR max maggie: 304.2 cm/sec MV A max maggie: 26.0 cm/sec TR max P.0 mmHg MV E/A: 3.2 MV dec time: 0.14 sec Reading Physician:04:04 PM
--- NOTE | 2023-12-19 13:50 | RT ---
At bedside for Cardioversion, pt on HHFNC and moo well. Bag mask unit at [facility] with suction. Pt fio2 decreased to 30% fio2 post procedure from 100%. Released by Nirmal leo. Repeat ekg done, pt alert
--- NOTE | 2023-12-19 14:04 | PM.CALLCOV.1 ---
Call Coverage Note Note Date of Patient Contact: 12/19/23 Narrative of Care Provided: 83 F with recent cardioversion here shortness of breath, currently on high flow nasal cannula. She has afib with RVR, on anticoagulation. Rate is improved in the 70s-80s currently, but POC cardiac US by me shows grossly reduced EF. If formal echo shows reduced EF, discussed with Dr. Noonan recommended transfer to [facility].
[2023-12-19] MEDS: AMIODARONE 150 MG/100 ML PIGGYBACK 600 MG IV (14:25)
[2023-12-19] MEDS: AMIODARONE 360 MG/200 ML PIGGYBACK 33.33 MG IV (14:55)
[2023-12-19 17:56] LABS: Creatine Kinase 33 U/L (30-135)
[2023-12-19 18:09] LABS: Troponin I < 0.012 ng/mL (0.01-0.034)
[2023-12-19] MEDS: AMIODARONE 360 MG/200 ML PIGGYBACK 16.7 MG IV (20:47)
[2023-12-19 22:51] LABS: Allen Test for ABG Passed? Yes, Passed; Blood Gas Collection Site Right Radial; Fractionated Inspired Oxygen 21; HCO3 ABG 21 mmol/L (23-27); Oxygen Saturation ABG 98 % (95-100); PO2 ABG 90 mmHg (80-100); TCO2 ABG 22 mmol/L (23-27); pH ABG 7.48 (7.35-7.45)
--- NOTE | 2023-12-19 23:00 | PC.NURSE ---
got report from [facility] kat pt is waitlisted at [facility] called Edilma spoke to nurse yard general car supervisor Loni who said Hospitalist has not even looked at the case and to no beds tonight spoke to Chase at [facility] who said no beds tonight nor all this weekend but to fax H&P and facesheet and they will waitlist pt. spoke to Topher at [facility]/Michelle and they are at 112% capacity [facility] should be here at around [id number]
== END 2023-12-19 23:20 | disposition short-term general hospital (02) ==
PROVIDERS: Emergency Medicine; Emergency Provider Emergency Medicine
DX: I48.20 Chronic atrial fibrillation, unspecified (principal); I50.9 Heart failure, unspecified; J96.01 Acute respiratory failure with hypoxia; Z79.01 Long term (current) use of anticoagulants
CPT/HCPCS: 36600; 71045; 80053; 82550; 82805; 83690; 83880; 84484; 85025; 85610; 85730; 92960; 93005; 93010; 93307; 94640; 99285; 99291; J0282; J1940; J2704